=== PATIENT | male | born 1935 | race Caucasian/White ===

== ENCOUNTER 2016-10-10 10:54 | Day surgery (SDC) | payer MEDICARE ==
[2016-10-10] MEDS ORDERED: ceFAZolin 1 GM VIAL ONE (11:39)
[2016-10-10] MEDS ORDERED: BUPIVACAINE 0.5% PF 10 ML VIAL IM ONE ×2 (12:12)
[2016-10-10] MEDS ORDERED: LACTATED RINGERS 1,000 ML IV ONE (12:15)
[2016-10-10] MEDS ORDERED: PROPOFOL 200 MG/20 ML VIAL IVP ONE (12:30)
[2016-10-10] MEDS ORDERED: MIDAZOLAM 2 MG/2 ML VIAL IVP ONE (12:30)
[2016-10-10] MEDS ORDERED: LIDOCAINE-MPF 2% 5 ML VIAL IM ONE (12:30)
[2016-10-10] MEDS ORDERED: fentaNYL 100 MCG/2 ML VIAL IVP ONE (12:30)
[2016-10-10] MEDS ORDERED: KETOROLAC 15 MG/ML VIAL ONE (12:47)
== END 2016-10-10 10:55 | disposition home or self-care (01) ==
PROC: 01N50ZZ Release Median Nerve, Open Approach (ICD-10-PCS; principal; 2016-10-10 12:15)
DX: G56.02 Carpal tunnel syndrome, left upper limb (principal); I10 Essential (primary) hypertension; I25.2 Old myocardial infarction; J43.9 Emphysema, unspecified; Z87.891 Personal history of nicotine dependence; Z88.1 Allergy status to other antibiotic agents; Z88.5 Allergy status to narcotic agent
CPT/HCPCS: 64721; J7120

== ENCOUNTER 2016-11-04 09:16 | Day surgery (SDC) | payer MEDICARE ==
[2016-11-04] MEDS ORDERED: ceFAZolin 1 GM VIAL ONE (09:19)
[2016-11-04] MEDS ORDERED: LACTATED RINGERS 1,000 ML IV ONE (09:50)
[2016-11-04] MEDS ORDERED: BUPIVACAINE 0.25% PF 30 ML VIAL SUBQ ONE (10:32)
[2016-11-04] MEDS ORDERED: MIDAZOLAM 2 MG/2 ML VIAL IVP ONE (10:40)
[2016-11-04] MEDS ORDERED: PROPOFOL 200 MG/20 ML VIAL IVP ONE (10:40)
[2016-11-04] MEDS ORDERED: fentaNYL 100 MCG/2 ML VIAL IVP ONE (10:40)
[2016-11-04] MEDS ORDERED: LIDOCAINE-MPF 2% 5 ML VIAL IM ONE (10:40)
== END 2016-11-04 09:17 | disposition home or self-care (01) ==
DX: M65.331 Trigger finger, right middle finger (principal); M65.341 Trigger finger, right ring finger; J44.9 Chronic obstructive pulmonary disease, unspecified; I10 Essential (primary) hypertension; I25.10 Atherosclerotic heart disease of native coronary artery without angina pectoris; I25.2 Old myocardial infarction; F41.8 Other specified anxiety disorders; Z87.891 Personal history of nicotine dependence
CPT/HCPCS: 26055; J7120

== ENCOUNTER 2016-11-12 17:37 | Emergency (ER) | payer MEDICARE ==
[2016-11-12] MEDS ORDERED: LORazepam 0.5 MG TABLET PO STA (19:12)
[2016-11-12] MEDS ORDERED: LORazepam 0.5 MG TABLET ONE (19:21)
== END 2016-11-12 20:06 | disposition home or self-care (01) ==
DX: R00.2 Palpitations (principal); F41.9 Anxiety disorder, unspecified; I10 Essential (primary) hypertension; E78.00 Pure hypercholesterolemia, unspecified; I25.10 Atherosclerotic heart disease of native coronary artery without angina pectoris; J44.9 Chronic obstructive pulmonary disease, unspecified
CPT/HCPCS: 36415; 71010; 80053; 81003; 83690; 84484; 85025; 93005; 93010; 99284; A9270

== ENCOUNTER 2016-11-14 07:53 | Outpatient (CLI) | payer MEDICARE ==
[2016-11-14] MEDS ORDERED: GADOBUTROL 7.5 MMOL/7.5 ML VIAL IVP ONE (08:52)
== END 2016-11-14 07:54 | disposition home or self-care (01) ==
DX: R22.1 Localized swelling, mass and lump, neck (principal); R13.10 Dysphagia, unspecified
CPT/HCPCS: 70543; A9585

== ENCOUNTER 2017-01-07 10:32 | Outpatient (CLI) | payer MEDICARE ==
[2017-01-07] MEDS ORDERED: BARIUM SULFATE 454 GM TUBE PO ONE (11:08)
== END 2017-01-07 10:33 | disposition home or self-care (01) ==
DX: R13.10 Dysphagia, unspecified (principal)
CPT/HCPCS: 74230; 92611; G8997; G8998

== ENCOUNTER 2017-07-02 16:51 | Outpatient (CLI) | payer MEDICARE ==
[2017-07-02 17:15] LABS: CALCIUM 9.5 mg/dL (8.5-10.3); POTASSIUM 4.3 mmol/L (3.5-5.0)
[2017-07-02] MEDS ORDERED: IOPAMIDOL-300 50 ML VIAL ONE (17:28)
[2017-07-02] MEDS ORDERED: IOPAMIDOL-300 100 ML VIAL ONE (17:28)
[2017-07-02] MEDS ORDERED: IOPAMIDOL-300 50 ML VIAL PO ONE (18:18)
[2017-07-02] MEDS ORDERED: IOPAMIDOL-300 100 ML VIAL IVP ONE (18:18)
--- NOTE | 2017-07-02 19:25 | CT Preliminary Report ---
Exam: CT ABDOMEN/PELVIS W/ IMPRESSION: 1. No bowel obstruction or inflammatory process associated with the bowel. 2. No free air or fluid in the abdomen or pelvis. 3. The appendix images normally. 4. There is a fat-containing umbilical hernia measuring 8 mm at the neck. 5. 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 [facility] The call report notification system was initiated by Dr. Inge Singer at 18:50 hrs on 07/02/17. The above findings were discussed with Dr. Clark by Dr. Inge Singer at 19:24 hrs on 07/02/17. SITE ID: [id number]
--- NOTE | 2017-07-02 19:28 | CT Report ---
EXAM: CT ABDOMEN AND PELVIS EXAM DATE: 07/02/2017 06:21 PM. CLINICAL HISTORY: COLOTIS,HERNIA. COMPARISONS: Abdominal CT dated 06/16/2008. TECHNIQUE: Routine helical CT imaging was performed through the abdomen and pelvis. IV contrast: 100 mL Isovue 300. Enteric contrast: No. Reconstructions: Coronal and sagittal. In accordance with CT protocol optimization, one or more of the following dose reduction techniques w ere utilized for this exam: automated exposure control, adjustment of mA and/or KV based on patient s ize, or use of iterative reconstructive technique. FINDINGS: Lung Bases: Unremarkable. Liver: Normal. No masses. Gallbladder/Bile Ducts: Unremarkable. Spleen: Normal. Pancreas: Normal. Adrenal Glands: There is a 3.0 x 2.0 cm, previously 2.9 x 2.1 cm on the abdominal CT dated 06/16/2008 , lesion in the right adrenal gland measuring up to 119 Hounsfield units. Left adrenal gland is unrem arkable. Kidneys: There is a nonobstructing 3 mm stone in the inferior pole of the left kidney. No hydronephro sis or ureter. Peritoneal Cavity/Bowel: There is a fat-containing umbilical hernia measuring 8 mm at the neck.. No f ree fluid, free air or adenopathy. No masses or acute inflammatory process. The appendix is well visu alized and normal. Pelvic Organs: The superior aspect of the prostate has a funneled shaped scan be seen in the setting of prior TURP procedures. Vasculature: No aneurysms or other significant abnormality. Bones: No significant abnormality. Other: None. IMPRESSION: 1. No bowel obstruction or inflammatory process associated with the bowel. 2. No free air or fluid in the abdomen or pelvis. 3. The appendix images normally. 4. There is a fat-containing umbilical hernia measuring 8 mm at the neck. 5. 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 [facility] The call report notification system was initiated by Dr. Ineg Singer at 18:50 hrs on 07/02/17. The above findings were discussed with Dr. Clark by Dr. Inge Singer at 19:24 hrs on 07/02/17. Referring Provider Line: [phone] SITE ID: [id number]
== END 2017-07-02 16:52 | disposition home or self-care (01) ==
LOC: LAB 16:51 → DI 16:52
PROVIDERS: ATTEND Specialist
DX: K42.9 Umbilical hernia without obstruction or gangrene (principal); E27.8 Other specified disorders of adrenal gland
CPT/HCPCS: 36415; 74177; 80048; Q9967

== ENCOUNTER 2017-08-12 21:17 | Outpatient (CLI) | payer MEDICARE | END 2017-08-12 21:18 | disposition critical access hospital (66) | LOC: EMS 21:17 | PROVIDERS: ATTEND Surgery | DX: K62.5 Hemorrhage of anus and rectum (principal) | CPT/HCPCS: A0425; A0429 ==

== ENCOUNTER 2017-08-12 21:34 | Emergency (ER) | payer MEDICARE ==
[2017-08-12 22:08] LABS: HCT - HEMATOCRIT 41.8 % (42.0-52.0); HGB - HEMOGLOBIN 14.4 g/dL (14.0-18.0); MEAN CORPUSCULAR HEMOGLOBIN 33.3 pg (27.0-31.0); MEAN CORPUSCULAR HGB CONC 34.3 g/dL (32.0-36.0); MEAN CORPUSCULAR VOLUME 97.1 fL (80.0-94.0); MEAN PLATELET VOLUME 8.5 fL (7.4-11.4); RED BLOOD COUNT 4.31 10^6/uL (4.70-6.10); RED CELL DISTRIBUTION WIDTH 12.7 % (12.0-15.0); WHITE BLOOD COUNT 5.3 x10^3/uL (4.8-10.8)
--- NOTE | 2017-08-12 22:16 | ED Physician Documentation ---
PD HPI GI BLEED - Stated complaint Stated Complaint: GI BLEED - Chief complaint Chief Complaint: Abd Pain - History obtained from History obtained from: Patient - History of Present Illness Timing - onset: How many hours ago (1-2), Today Timing - details: Abrupt onset Associated symptoms: BRBPR (he had had a normal BM this morning without pain nor problems. This evening he had onset of some lower abd/left sided cramping and then had urge for BM. He went to toilet and had "large amount" of bright red blood pass rectally without stool. He did not notice any clots nor black/ dark color. He did feel lightheaded with it. Abd pain improved after the output was done.), Dizzy (lightheaded briefly) Contributing factors: No: Sick contact, Bad food, Travel, Recent antibiotics, Anticoagulated Similar symptoms before: No diagnosis (had an episode of BRBPR about a year or so ago while on a vacation, and it did not repeat, so dd not see PMD about it.) Recently seen: Clinic (has appt with Music Video Director tomorrow for cardiac clearance prior to getting umbilical hernia repair by Dr. Hare. Also to get upper and lower endoscopies in near future as follow up for prior [place] for reflux and prior colonoscopy about 5 years ago.) Review of Systems Constitutional: denies: Fever, Chills Nose: denies: Rhinorrhea / runny nose, Congestion Throat: denies: Sore throat Cardiac: denies: Chest pain / pressure, Palpitations Respiratory: denies: Cough GI: reports: Bloody / black stool (as noted in HPI). denies: Nausea, Vomiting, Diarrhea : denies: Dysuria, Frequency Skin: denies: Rash, Lesions Musculoskeletal: denies: Neck pain, Back pain Neurologic: reports: Generalized weakness. denies: Focal weakness, Numbness, Near syncope Endocrine: denies: Easy bruising / bleeding Immunocompromised: denies: Immunocompromised PD PAST MEDICAL HISTORY - Past Medical History Past Medical History: Yes Cardiovascular: Hypertension, High cholesterol, Coronary artery disease, Murmur Respiratory: COPD, Emphysema, Pneumonia Neuro: None Endocrine/Autoimmune: None GI: GERD, Ulcers, Hemorrhoids, Other : Benign prostate hypertrophy, Kidney stones HEENT: Macular degeneration, Other Psych: Anxiety Musculoskeletal: Osteoarthritis Derm: Psoriasis - Past Surgical History Past Surgical History: Yes General: Bowel surgery, Colonoscopy, EGD Ortho: Carpal Tunnel surgery Cardiovascular: Cardiac catheterization HEENT: Cataracts, Tonsil/Adenoidectomy - Present Medications Home Medications: Ambulatory Orders Medication Instructions Recorded Confirmed Cholecalciferol (Vitamin D3) 1 each PO DAILY 10/10/16 08/12/17 [Vitamin D3] Vitamin B Complex 1 each PO DAILY 10/10/16 08/12/17 - Allergies Allergies/Adverse Reactions: Allergies Allergy/AdvReac Type Severity Reaction Status Date / Time ceftriaxone sodium * Allergy Dizziness Verified 08/12/17 21:37 [From Rocephin] morphine Allergy swelling Verified 08/12/17 21:37 - Social History Does the pt smoke?: No Smoking Status: Former smoker Does the pt drink ETOH?: No ETOH Use: Beer Does the pt have substance abuse?: No - Immunizations Immunizations are current?: Yes - POLST Patient has POLST: No PD ED PE NORMAL - Vitals Vital signs reviewed: Yes - General General: Alert and oriented X 3, No acute distress, Well developed/nourished - HEENT HEENT: Moist mucous membranes, Pharynx benign - Neck Neck: Supple, no meningeal sign, No adenopathy - Cardiac Cardiac: RRR, No murmur - Respiratory Respiratory: Clear bilaterally - Abdomen Abdomen: Normal bowel sounds, Soft, Non tender, Non distended, No organomegaly, Other (umbilical hernia noted which is soft and easily reducible. ) - Male Male : Deferred - Rectal Rectal: Other (external normal. Digital exam without obvious hemorrhoid nor fissure. There is no stool in vault, but trace of red blood with some mucous. No focal tenderness. ) - Back Back: No CVA TTP - Derm Derm: Normal color, Warm and dry - Extremities Extremities: No deformity, No tenderness to palpate, Normal ROM s pain, No edema , No calf tenderness / cord - Neuro Neuro: Alert and oriented X 3, No motor deficit, Normal speech Results - Vitals Vitals: Vital Signs - 24 hr 08/12/17 08/12/17 08/12/17 21:36 22:05 22:54 Temperature 36.6 C Heart Rate 85 80 80 Respiratory 20 20 17 Rate Blood Pressure 152/82 H 143/89 H 171/91 H O2 Saturation 94 95 95 08/12/17 08/12/17 23:38 23:57 Temperature Heart Rate 80 75 Respiratory 21 18 Rate Blood Pressure 156/78 H 160/84 H O2 Saturation 96 97 Oxygen O2 Source Room air - Labs Labs: Laboratory Tests 08/12/17 08/12/17 08/12/17 21:49 21:49 21:49 WBC 5.3 RBC 4.31 L Hgb 14.4 Hct 41.8 L MCV 97.1 H MCH 33.3 H MCHC 34.3 RDW 12.7 Plt Count 218 MPV 8.5 Whole Blood INR APTT 26.3 Sodium Potassium Chloride Carbon Dioxide Anion Gap BUN Creatinine Estimated GFR (MDRD) Glucose Calcium Total Bilirubin AST ALT Alkaline Phosphatase Total Protein Albumin Globulin Albumin/Globulin Ratio Lipase Ethyl Alcohol Blood Type O POSITIVE Antibody Screen NEGATIVE 08/12/17 08/12/17 08/12/17 21:49 21:49 21:56 WBC RBC Hgb Hct MCV MCH MCHC RDW Plt Count MPV Whole Blood INR 0.9 APTT Sodium 135 Potassium 3.8 Chloride 101 Carbon Dioxide 23 Anion Gap 11.0 BUN 18 Creatinine 1.1 Estimated GFR (MDRD) 64 L Glucose 110 H Calcium 9.1 Total Bilirubin 0.2 AST 24 ALT 17 Alkaline Phosphatase 49 Total Protein 6.7 Albumin 3.7 Globulin 3.0 Albumin/Globulin Ratio 1.2 Lipase 41 Ethyl Alcohol < 5.0 Blood Type Antibody Screen PD MEDICAL DECISION MAKING - ED course Complexity details: reviewed results, re-evaluated patient (feeling okay here. No abd pain. He says he had small BM with some formed stool and no significant blood. ), considered differential (seems likely a lower colon process, but does not seem to be hemorrhoidal nor fissure on exam. Could be diverticular bleed. He seems stable. However, consider watching as he did have lightheadedness and description of large amount of blood. Repeat blood count and fluids and time to monitor for ongoing bleeding. Will discuss with Hospitalist. ), d/w patient, d/ w home energy consultant supervisor (Dr. Pickard, hospitalist, who came and talked with patient and . They agreed in shared decision for the patient to go home, given how stable he seems. He is to return if bleeding again, otherwise to f/u PMD (and his Music Video Director with whom he has appt tomorrow). Dispo changed to discharged. ) Departure - Departure Disposition: Home, Self Care Clinical Impression: Lower GI bleeding Condition: Stable Record reviewed to determine appropriate education?: Yes Instructions: ED Hematochezia Stable Follow-Up: Naya Coy PA-C [Primary Care Provider] - Comments: Drink lots of fluids. Usual medications. Return if intestinal bleeding again occurs. See the vamp strap ironer tomorrow as planned. Have a repeat blood count done in the next 1-2 days. Discharge Date/Time: 08/13/17 00:05
[2017-08-12 22:18] LABS: ALBUMIN/GLOBULIN RATIO 1.2 (1.0-2.2); BILIRUBIN,TOTAL 0.2 mg/dL (0.2-1.0); CALCIUM 9.1 mg/dL (8.5-10.3); CREATININE 1.1 mg/dL (0.6-1.2); POTASSIUM 3.8 mmol/L (3.5-5.0); TOTAL PROTEIN 6.7 g/dL (6.7-8.2)
[2017-08-12] MEDS ORDERED: SODIUM CHLORIDE 0.9% 250 ML IV ONE (22:36)
[2017-08-12] MEDS ORDERED: SODIUM CHLORIDE 0.9% 500 ML IV ONE (22:36)
[2017-08-12] MEDS ORDERED: oxyCODONE 5 MG TABLET PO PRN (23:24)
[2017-08-12] MEDS ORDERED: ACETAMINOPHEN 325 MG TABLET PO PRN (23:24)
[2017-08-12] MEDS ORDERED: ONDANSETRON 4 MG/2 ML VIAL IVP PRN (23:24)
[2017-08-12] MEDS ORDERED: ZOLPIDEM 5 MG TABLET PO PRN (23:24)
[2017-08-12] MEDS ORDERED: PROCHLORPERAZINE 10 MG/2 ML VIAL IVP PRN (23:24)
[2017-08-12] MEDS ORDERED: SODIUM CHLORIDE FLUSH 0.9% 10 ML SYRINGE IVP PRN (23:24)
[2017-08-12] MEDS ORDERED: PANTOPRAZOLE 40 MG VIAL IVP SCH (23:45)
[2017-08-12] MEDS ORDERED: SODIUM CHLORIDE 0.9% 1,000 ML IV SCH (23:45)
[2017-08-12 23:58] VITALS: BP 160/84
[2017-08-13] MEDS ORDERED: SODIUM CHLORIDE FLUSH 0.9% 10 ML SYRINGE IVP SCH (06:00)
[2017-08-13] MEDS ORDERED: POLYETHYLENE GLYCOL 3350 17 GM PACKET PO SCH (09:00)
== END 2017-08-13 00:05 | disposition home or self-care (01) ==
LOC: ED 21:34
DX: K92.2 Gastrointestinal hemorrhage, unspecified (principal); I10 Essential (primary) hypertension; E78.00 Pure hypercholesterolemia, unspecified; I25.10 Atherosclerotic heart disease of native coronary artery without angina pectoris; Z87.891 Personal history of nicotine dependence; H35.30 Unspecified macular degeneration
CPT/HCPCS: 36415; 80053; 83690; 85027; 85610; 85730; 86850; 86900; 86901; 96360; 99284; G0480; 80320; 85025

== ENCOUNTER 2017-09-19 06:58 | Day surgery (SDC) | payer MEDICARE ==
[~2017-09-19 06:58] MED LIST: ceFAZolin 2 GM/50 ML 2 GM/50 ML BAG IV ONE
[2017-09-19] MEDS ORDERED: BUPIVACAINE 0.5%-EPI 1:200000 PF 30 ML VIAL SUBQ ONE ×2 (07:22→09:13)
[2017-09-19] MEDS ORDERED: LACTATED RINGERS 1,000 ML IV ONE ×2 (07:34→09:14)
[2017-09-19] MEDS ORDERED: fentaNYL 100 MCG/2 ML VIAL IVP ONE (08:49)
[2017-09-19] MEDS ORDERED: ONDANSETRON 4 MG/2 ML VIAL IVP ONE (08:49)
[2017-09-19] MEDS ORDERED: KETOROLAC 30 MG/ML VIAL IVP ONE (08:49)
[2017-09-19] MEDS ORDERED: DEXAMETHASONE 4 MG/ML VIAL IVP ONE (08:49)
[2017-09-19] MEDS ORDERED: LIDOCAINE-MPF 2% 5 ML VIAL IM ONE (08:49)
[2017-09-19] MEDS ORDERED: PROPOFOL 200 MG/20 ML VIAL IVP ONE (08:49)
[2017-09-19] MEDS ORDERED: ePHEDrine 50 MG/ML VIAL IVP ONE (08:49)
[2017-09-19] MEDS ORDERED: MIDAZOLAM 2 MG/2 ML VIAL IVP ONE (08:49)
[2017-09-19] MEDS: fentaNYL 100 MCG/2 ML VIAL ONE ×2 (09:50→09:56)
[2017-09-19] MEDS ORDERED: HYDROcod/ACETAM 5/325 MG TABLET ONE (10:28)
[2017-09-19 10:44] VITALS: BP 140/78
--- NOTE | 2017-09-25 11:03 | OPERATIVE REPORT ---
DATE OF SERVICE: 09/19/2017 Physician: Teja Hare MD PREOPERATIVE DIAGNOSIS: Incarcerated ventral incisional hernia. POSTOPERATIVE DIAGNOSIS: Incarcerated ventral incisional hernia. PROCEDURE: Repair of incarcerated ventral incisional hernia. OPERATING SURGEON: Teja Hare MD ANESTHESIA: General. INDICATIONS FOR PROCEDURE: The patient is an 81-year-old male who has had multiple previous abdomina l surgeries. His last surgery was a gastric surgery that was done laparoscopically. He now presents w ith pain and swelling in the supraumbilical area overlying one of the previous incisions. On physical exam, tony taveras has incarcerated ventral incisional hernia. FINDINGS AT SURGERY: The patient had incarcerated ventral incisional hernia containing a small amoun t of omentum. The hole was small, measuring approximately 1.5 cm; therefore, it was closed primarily. PROCEDURE: After informed consent was obtained, the patient was taken to the operating room, placed in supine position. General anesthesia was administered. The patient's abdomen was then prepped and draped in the usual sterile fashion. Prior to making abdominal incision, the skin was injected with local anesthes ia. A vertical incision was then made over the hernia sac. Incision was then deepened down to the hernia s ac, which was dissected free from the surrounding structures. Hernia sac was entered with a containing incarce rated omentum. The omentum that was outside of the abdominal cavity was then clamped, divided, and tied us ing 3-0 Vicryl suture. Hernia sac was then removed from the fascia. The surrounding subcutaneous tissue was then dissected off the fascia surrounding the defect. The fascial defect was then closed using interrupte d number 0 Ethibond sutures closing it transversely. Wound was irrigated and hemostasis was obtained using electrocautery. Subcutaneous tissue was closed using 3-0 Vicryl suture. The skin was closed using 4 -0 Monocryl subcuticular stitch. Dermabond was then applied. The patient was then awakened, extubated, and taken from the operating room in stable condition. ESTIMATED BLOOD LOSS: Less than 5 mL. COMPLICATIONS: None. CONDITION OF THE PATIENT AFTER PROCEDURE: Stable. SPECIMENS: None. TD: 09/24/2017 11:52
== END 2017-09-19 06:59 | disposition home or self-care (01) ==
LOC: SDS 06:58
PROVIDERS: ATTEND Surgery
PROC: 0WQF0ZZ Repair Abdominal Wall, Open Approach (ICD-10-PCS; principal; 2017-09-19 08:15)
DX: K43.0 Incisional hernia with obstruction, without gangrene (principal); K21.9 Gastro-esophageal reflux disease without esophagitis; J44.9 Chronic obstructive pulmonary disease, unspecified; Z87.891 Personal history of nicotine dependence
CPT/HCPCS: 49561; A9270; J0690; J7120

== ENCOUNTER 2017-10-28 08:57 | Day surgery (SDC) | payer MEDICARE ==
[2017-10-28] MEDS ORDERED: LACTATED RINGERS 1,000 ML IV ONE ×3 (09:37→10:30)
[2017-10-28] MEDS ORDERED: fentaNYL 100 MCG/2 ML VIAL IVP ONE (10:26)
[2017-10-28] MEDS ORDERED: MIDAZOLAM 2 MG/2 ML VIAL IVP ONE (10:26)
[2017-10-28 12:28] VITALS: BP 112/68
== END 2017-10-28 08:58 | disposition home or self-care (01) ==
LOC: SDS 08:57
PROVIDERS: ATTEND Surgery
PROC: 0DB98ZX Excision of Duodenum, Via Natural or Artificial Opening Endoscopic, Diagnostic (ICD-10-PCS; 2017-10-28)
PROC: 0DB48ZX Excision of Esophagogastric Junction, Via Natural or Artificial Opening Endoscopic, Diagnostic (ICD-10-PCS; 2017-10-28)
PROC: 0DBK8ZX Excision of Ascending Colon, Via Natural or Artificial Opening Endoscopic, Diagnostic (ICD-10-PCS; principal; 2017-10-28 10:15)
PROC: 0DBP8ZX Excision of Rectum, Via Natural or Artificial Opening Endoscopic, Diagnostic (ICD-10-PCS; 2017-10-28 10:15)
DX: K62.5 Hemorrhage of anus and rectum (principal); K22.70 Barrett's esophagus without dysplasia; K44.9 Diaphragmatic hernia without obstruction or gangrene; D13.2 Benign neoplasm of duodenum; K29.70 Gastritis, unspecified, without bleeding; K92.1 Melena; K57.30 Diverticulosis of large intestine without perforation or abscess without bleeding; D12.2 Benign neoplasm of ascending colon; K62.1 Rectal polyp; K64.8 Other hemorrhoids; Z87.891 Personal history of nicotine dependence
CPT/HCPCS: 43239; 45384; J7120

== ENCOUNTER 2017-11-22 15:49 | Observation (INO) | payer MEDICARE ==
[2017-11-22 16:20] LABS: BASOPHILS % (AUTO) 0.7 %; EOSINOPHILS # (AUTO) 0.2 10^3/uL (0.0-0.7); EOSINOPHILS % (AUTO) 3.1 %; HGB - HEMOGLOBIN 14.5 g/dL (14.0-18.0); LYMPHOCYTES # (AUTO) 1.5 10^3/uL (1.5-3.5); LYMPHOCYTES % (AUTO) 27.7 %; MEAN CORPUSCULAR HEMOGLOBIN 32.4 pg (27.0-31.0); MEAN CORPUSCULAR HGB CONC 33.9 g/dL (32.0-36.0); MEAN CORPUSCULAR VOLUME 95.5 fL (80.0-94.0); MEAN PLATELET VOLUME 8.1 fL (7.4-11.4); MONOCYTES # (AUTO) 0.8 10^3/uL (0.0-1.0); MONOCYTES % (AUTO) 14.4 %; NEUTROPHILS # (AUTO) 2.9 10^3/uL (1.5-6.6); NEUTROPHILS % (AUTO) 54.1 %; PLT - PLATELET COUNT 246 10^3/uL (130-450); RED BLOOD COUNT 4.48 10^6/uL (4.70-6.10); WHITE BLOOD COUNT 5.3 x10^3/uL (4.8-10.8)
[2017-11-22 16:26] LABS: PT - PROTHROMBIN TIME 10.9 secs (9.9-12.6)
--- NOTE | 2017-11-22 16:27 | ED Physician Documentation ---
PD HPI ABD PAIN - Stated complaint Stated Complaint: ABD PX/RECTAL BLEEDING - Chief complaint Chief Complaint: Abd Pain - History obtained from History obtained from: Patient, Family - History of Present Illness Timing - onset: Today Timing - duration: Days (1) Timing - details: Abrupt onset Pain level max: 10 Pain level now: 10 Quality: Aching, Pain Location: All over / everywhere Radiation: Other (non-radiating) Improved by: Other (nothing) Worsened by: Moving, Palpation Associated symptoms: Nausea, Other (BRBPR x 1 today after pain started. Has severe internal hemorrhoids.). No: Fever, Vomiting, Hematemesis, Diarrhea, Constipation Similar symptoms before: Diagnosis (incarcerated ventral hernia repair approx 6 weeks ago. severe internal hemorrhoids on colonoscopy 1 month ago.) Review of Systems Ten Systems: 10 systems reviewed and negative Constitutional: denies: Fever, Chills Ears: denies: Ear pain Nose: denies: Rhinorrhea / runny nose, Congestion Throat: denies: Sore throat Cardiac: denies: Chest pain / pressure GI: denies: Diarrhea, Hematemesis Skin: denies: Rash Musculoskeletal: denies: Neck pain, Back pain Neurologic: denies: Headache PD PAST MEDICAL HISTORY - Past Medical History Cardiovascular: Hypertension, High cholesterol, Coronary artery disease, MA, Murmur, Arrhythmia Respiratory: COPD, Emphysema, Pneumonia Neuro: None Endocrine/Autoimmune: None GI: GERD, GI bleed, Ulcers, Hemorrhoids, Other : Benign prostate hypertrophy, Kidney stones HEENT: Macular degeneration, Chronic hearing loss, Other Psych: Depression, Anxiety, Panic attacks Musculoskeletal: Osteoarthritis, Chronic back pain Derm: Psoriasis - Past Surgical History Past Surgical History: Yes General: Bowel surgery, Colonoscopy, EGD Ortho: Carpal Tunnel surgery Cardiovascular: Cardiac catheterization HEENT: Cataracts, Tonsil/Adenoidectomy - Allergies Allergies/Adverse Reactions: Allergies Allergy/AdvReac Type Severity Reaction Status Date / Time ceftriaxone sodium * Allergy Dizziness Verified 11/22/17 16:12 [From Rocephin] morphine Allergy swelling Verified 11/22/17 16:12 - Social History Does the pt smoke?: No Smoking Status: Never smoker Does the pt drink ETOH?: No Does the pt have substance abuse?: No - Immunizations Immunizations are current?: Yes - POLST Patient has POLST: No PD ED PE NORMAL - Vitals Vital signs reviewed: Yes - General General: Alert and oriented X 3, No acute distress, Well developed/nourished - HEENT HEENT: PERRL, Moist mucous membranes - Neck Neck: Supple, no meningeal sign - Cardiac Cardiac: RRR, Strong equal pulses - Respiratory Respiratory: No respiratory distress, Clear bilaterally - Abdomen Abdomen: Other (Mildly distended with diffuse tenderness to palpation. Positive rebound and guarding) - Male Male : Pt declined - Derm Derm: Warm and dry, No rash - Extremities Extremities: No calf tenderness / cord - Neuro Neuro: Alert and oriented X 3 - Psych Psych: Normal mood, Normal affect Results - Vitals Vitals: Vital Signs - 24 hr 11/22/17 11/22/17 11/22/17 15:57 18:24 18:25 Temperature 36.9 C Heart Rate 86 76 81 Respiratory 20 16 16 Rate Blood Pressure 191/86 H 142/73 H 146/76 H O2 Saturation 100 94 11/22/17 19:52 Temperature Heart Rate 78 Respiratory 16 Rate Blood Pressure 149/83 H O2 Saturation 94 Oxygen O2 Source Nasal cannula - Labs Labs: Laboratory Tests 11/22/17 11/22/17 11/22/17 16:10 16:10 16:10 WBC 5.3 RBC 4.48 L Hgb 14.5 Hct 42.7 MCV 95.5 H MCH 32.4 H MCHC 33.9 RDW 13.0 Plt Count 246 MPV 8.1 Neut # 2.9 Lymph # 1.5 Mitchell # 0.8 Eos # 0.2 Baso # 0.0 Absolute Nucleated RBC 0.00 Nucleated RBC % 0.1 PT INR APTT Sodium 137 Potassium 3.7 Chloride 104 Carbon Dioxide 23 Anion Gap 10.0 BUN 13 Creatinine 0.9 Estimated GFR (MDRD) 81 L Glucose 105 H Calcium 9.3 Total Bilirubin 0.6 AST 21 ALT 17 Alkaline Phosphatase 66 Total Protein 7.5 Albumin 4.2 Globulin 3.3 Albumin/Globulin Ratio 1.3 Lipase 36 Urine Color Urine Clarity Urine pH Ur Specific [place] Urine Protein Urine Glucose (UA) Urine Ketones Urine Occult Blood Urine Nitrite Urine Bilirubin Urine Urobilinogen Ur Leukocyte Esterase Ur Microscopic Review Urine Culture Comments Blood Type O POSITIVE Antibody Screen NEGATIVE 11/22/17 11/22/17 16:10 17:40 WBC RBC Hgb Hct MCV MCH MCHC RDW Plt Count MPV Neut # Lymph # Mitchell # Eos # Baso # Absolute Nucleated RBC Nucleated RBC % PT 10.9 INR 1.0 APTT 26.3 Sodium Potassium Chloride Carbon Dioxide Anion Gap BUN Creatinine Estimated GFR (MDRD) Glucose Calcium Total Bilirubin AST ALT Alkaline Phosphatase Total Protein Albumin Globulin Albumin/Globulin Ratio Lipase Urine Color YELLOW Urine Clarity CLEAR Urine pH 6.5 Ur Specific [place] <=1.005 Urine Protein NEGATIVE Urine Glucose (UA) NEGATIVE Urine Ketones NEGATIVE Urine Occult Blood NEGATIVE Urine Nitrite NEGATIVE Urine Bilirubin NEGATIVE Urine Urobilinogen 0.2 (NORMAL) Ur Leukocyte Esterase NEGATIVE Ur Microscopic Review NOT INDICATED Urine Culture Comments NOT INDICATED Blood Type Antibody Screen - Rads (name of study) CT abd/pelvis Radiology: Prelim report reviewed, EMP read contemporaneously, See rad report ( Left upper quadrant dilated small bowel loops with multiple air-fluid levels and mesenteric architectural distortion. Differential diagnosis includes early partial mid small bowel obstruction versus localizing ileus or enteritis in the left upper quadrant. 2. No bowel perforation or abnormal fluid collection. 3. Nonobstructing 3 mm left kidney stone. No ureter stones. ) PD MEDICAL DECISION MAKING - ED course Complexity details: reviewed old records, reviewed results, re-evaluated patient , considered differential, d/w patient, d/w family, d/w health care consultant ED course: Patient is an 82-year-old gentleman who presents to the emergency department with sudden onset abdominal pain. Appears to have an early bowel obstruction on CT scan. Pain well controlled in the emergency department. No vomiting. He also has chronic severe internal hemorrhoids that likely caused the bright red blood per rectum 1 tonight. Hemoglobin is normal. Discussed the case with Dr. Leung, general surgery who recommends observation tonight. Also discussed the case with Dr. Valentin, hospitalist who accepts. This document was made in part using voice recognition software. While efforts are made to proofread this document, sound alike and grammatical errors may occur. Departure - Departure Disposition: ED Place in Observation Clinical Impression: Small bowel obstruction, Lower GI bleeding Condition: Stable Discharge Date/Time: 11/22/17 20:53
[2017-11-22] MEDS ORDERED: fentaNYL 100 MCG/2 ML VIAL IVP STA ×2 (16:28→17:04)
[2017-11-22] MEDS ORDERED: SODIUM CHLORIDE 0.9% 1,000 ML IV ONE (16:31)
[2017-11-22] MEDS ORDERED: ONDANSETRON 4 MG/2 ML VIAL IVP STA (16:31)
[2017-11-22 16:32] LABS: ALBUMIN 4.2 g/dL (3.2-5.5); ALBUMIN/GLOBULIN RATIO 1.3 (1.0-2.2); BILIRUBIN,TOTAL 0.6 mg/dL (0.2-1.0); CALCIUM 9.3 mg/dL (8.5-10.3); CREATININE 0.9 mg/dL (0.6-1.2); TOTAL PROTEIN 7.5 g/dL (6.7-8.2)
[2017-11-22] MEDS ORDERED: IOPAMIDOL-300 100 ML VIAL ONE (16:57)
[2017-11-22] MEDS ORDERED: IOPAMIDOL-300 100 ML VIAL IVP ONE (17:23)
--- NOTE | 2017-11-22 17:49 | CT Report ---
EXAM: CT ABDOMEN AND PELVIS EXAM DATE: 11/22/2017 05:09 PM. CLINICAL HISTORY: Sudden onset diffuse abd pain. COMPARISONS: 07/02/2017. TECHNIQUE: Routine helical CT imaging was performed through the abdomen and pelvis. IV contrast: ISOV UE 300 100mL. Enteric contrast: No. Reconstructions: Coronal and sagittal. In accordance with CT protocol optimization, one or more of the following dose reduction techniques w ere utilized for this exam: automated exposure control, adjustment of mA and/or KV based on patient s ize, or use of iterative reconstructive technique. FINDINGS: Lung Bases: There are dependent bibasilar densities most suggestive of atelectasis. Negative for pleu ral effusion. Liver: Normal. No masses. Gallbladder/Bile Ducts: Unremarkable. Spleen: Normal. Pancreas: Normal. Adrenal Glands: There is an enhancing solid right adrenal nodule which is of indeterminate density an d appears unchanged measuring 2.7 x 2 cm. The left adrenal gland appears normal. Kidneys: There is a 3 mm nonobstructing left kidney stone. There are cysts in the right kidney. There is no hydronephrosis. No ureter stones. Peritoneal Cavity/Bowel: There dilated small bowel loops in the anterior left upper quadrant of the a bdomen. There are multiple small bowel air-fluid levels. The large or small bowel loops measure up to 4.1 cm in diameter. There are findings of previous abdominal surgery with a surgical anastomosis in the left colon. There is architectural distortion of the mesentery in the left abdomen. No free air o r abscess. No free fluid. There nondilated small bowel loops in the right lower quadrant. Pelvic Organs: Normal. The bladder and visualized pelvic organs are within normal limits. Vasculature: There is moderate calcification of the abdominal aorta without aneurysm. Bones: No significant abnormality. Other: None. IMPRESSION: 1. Left upper quadrant dilated small bowel loops with multiple air-fluid levels and mesenteric jaimee ectural distortion. Differential diagnosis includes early partial mid small bowel obstruction versus localizing ileus or enteritis in the left upper quadrant. 2. No bowel perforation or abnormal fluid collection. 3. Nonobstructing 3 mm left kidney stone. No ureter stones. [facility] Referring Provider Line: [phone] SITE ID: [id number]
--- NOTE | 2017-11-22 17:49 | CT Preliminary Report ---
Exam: CT ABDOMEN/PELVIS W/ IMPRESSION: 1. Left upper quadrant dilated small bowel loops with multiple air-fluid levels and mesenteric jaimee ectural distortion. Differential diagnosis includes early partial mid small bowel obstruction versus localizing ileus or enteritis in the left upper quadrant. 2. No bowel perforation or abnormal fluid collection. 3. Nonobstructing 3 mm left kidney stone. No ureter stones. [facility] SITE ID: [id number]
[2017-11-22 17:51] LABS: BILIRUBIN,URINE NEGATIVE (NEGATIVE); GLUCOSE, URINE (UA) NEGATIVE (NEGATIVE); KETONES,URINE (UA) NEGATIVE (NEGATIVE); LEUKOCYTE ESTERASE, URINE NEGATIVE (NEGATIVE); NITRITE,URINE NEGATIVE (NEGATIVE); OCCULT BLOOD,URINE NEGATIVE (NEGATIVE); PH,URINE 6.5 PH (5.0-7.5); PROTEIN,URINE NEGATIVE (NEGATIVE); UROBILINOGEN,URINE 0.2 (NORMAL) E.U./dL (NORMAL)
[2017-11-22 17:53] LABS: CLARITY,URINE CLEAR (CLEAR)
[2017-11-22] MEDS ORDERED: PROCHLORPERAZINE 10 MG/2 ML VIAL IVP PRN (19:56)
[2017-11-22] MEDS ORDERED: SODIUM CHLORIDE FLUSH 0.9% 10 ML SYRINGE IVP PRN (19:56)
[2017-11-22] MEDS ORDERED: HYDROmorphone 1 MG/ML SYRINGE IVP PRN (19:56)
--- NOTE | 2017-11-22 22:19 | HISTORY & PHYSICAL EXAMINATION ---
Chief Complaint - Chief Complaint Chief Complaint: abdominal pain History of Present Illness - Admitted From Admitted From:: home - History Obtained From Records Reviewed: yes History obtained from: patient, , and friend Exam Limitations: pt's hearing is impaired - History of Present Illness HPI Comment/Other: Mr. Joe Flores is a very pleasant 82-year-old male who has a history of sudden abdominal pain earlier today. He had a ventral hernia repair [address] Neil Hare and has had some rectal bleeding for which she is scheduled to see Dr. Oniel raza saphenous. He says the pain began around 1 PM and was very severe. It was so severe the patient decided to come to the emergency department.Subsequent workup found the patient have a partial small bowel obstruction. He will be admitted to the hospital for observation. History - Past Medical History Cardiovascular: reports: Hypertension, High cholesterol, Coronary artery disease , SC, Murmur, Arrhythmia Respiratory: reports: COPD, Emphysema, Pneumonia Neuro: reports: Other Endocrine/Autoimmune: reports: None GI: reports: GERD, GI bleed, Ulcers, Hemorrhoids, Other : reports: Benign prostate hypertrophy, Kidney stones HEENT: reports: Macular degeneration, Chronic hearing loss, Other Psych: reports: Depression, Anxiety, Panic attacks Musculoskeletal: reports: Osteoarthritis, Chronic back pain Derm: reports: Psoriasis MRSA Hx?: No Other Past Medical History: Forgetful-short term memory. Plan to see a Neurologist in the future. - Past Surgical History General: reports: Bowel surgery, Colonoscopy, EGD, Other Ortho: reports: Carpal Tunnel surgery Cardiovascular: reports: Cardiac catheterization HEENT: reports: Cataracts, Tonsil/Adenoidectomy - Family & Social History Family History: Mother: , Cancer, Father: , Other family: Cancer Living arrangement: At home Living Situation: With spouse/s.o. - Substance History Use: Uses substance without health or social issues: Alcohol Abuse: Recurrent use of substance despite neg consequences: NONE Dependence: Experiences withdrawal or developed tolerances: NONE - POLST Patient has POLST: Yes POLST Status: Full Code Meds/Allgy - Allergies Allergies/Adverse Reactions: Allergies Allergy/AdvReac Type Severity Reaction Status Date / Time ceftriaxone sodium * Allergy Dizziness Verified 11/22/17 16:12 [From Rocephin] morphine Allergy swelling Verified 11/22/17 16:12 Review of Systems - Constitutional Constitutional: denies: Fatigue, Fever, Chills - Eyes Eyes: denies: Pain, Irritation, Blurred vision - Ears, Nose & Throat Ears, Nose & Throat: denies: Ear pain, Hearing loss, Hearing aids, Tinnitus, Vertigo, Nasal pain, Nasal discharge - Cardiovascular Cariovascular: denies: Irregular heart rate, Palpitations, Chest pain, Edema - Respiratory Respiratory: denies: Cough, Sputum production, Wheezing, Hemoptysis, Orthopnea, SOB at rest - Gastrointestinal Gastrointestinal: reports: Abdominal pain, Constipation, Nausea. denies: Diarrhea, Rectal bleeding, Bloody stools, Vomiting - Genitourinary Genitourinary: denies: Dysuria, Frequency, Urgency, Hematuria - Musculoskeletal Musculoskeletal: denies: Muscle pain, Back pain, Muscle aches, Stiffness - Integumentary Integumentary: denies: Rash, Pruritis, Lesions, Dryness - Neurological Neurological: denies: General weakness, Focal weakness, Headache, Dizziness - Psychiatric Psychiatric: denies: Depression, Anxiety, Suicidal, Hallucinations - Endocrine Endocrine: denies: Polyuria, Polydypsia, Polyphagia - Hematologic/Lymphatic Hematologic/Lymphatic: denies: Anemia, Bruising, Lymphadenopathy - All Other Systems All Other Systems: reports: Reviewed and negative Exam - Vital Signs Reviewed Vital Signs: Yes Vital Signs: Vital Signs x48h Temp Pulse Resp BP Pulse Ox 11/22/17 21:50 36.4 C L 78 18 133/58 H 95 - Physical Exam General Appearance: positive: No acute distress, Alert Eyes Bilateral: positive: Normal inspection, PERRL, EOMI, No lid inflammation, Conjunctivae nml, No scleral icterus ENT: positive: ENT inspection nml, Pharynx nml, No signs of dehydration Neck: positive: Nml inspection, Thyroid nml, No JVD, Trachea midline. negative : Thyromegaly Respiratory: positive: Chest non-tender, No respiratory distress, Breath sounds nml. negative: Wheezes, Rales, Rhonchi Cardiovascular: positive: Regular rate & rhythm, No murmur, No gallop Peripheral Pulses: positive: 1+ Abdomen: positive: Non-tender, No organomegaly, Nml bowel sounds, No distention. negative: Guarding, Rebound Back: positive: Nml inspection. negative: CVA tenderness (R), CVA tenderness (L ) Skin: positive: Color nml, No rash, Warm, Dry. negative: Cyanosis Extremities: positive: Non-tender, Full ROM, Nml appearance, No pedal edema Neurologic/Psychiatric: positive: Oriented x3, CN's nml (2-12), Motor nml, Sensation nml, Mood/affect nml Conclusion/Plan - Problem List (1) Small bowel obstruction Conclusion/Plan: We will admit the patient to an observation bed, continue with regular feedings , and address any other issues as they arise. If the patient is able to eat and move his bowels tomorrow he will be discharged.Dr. Leung has been consulted - Lab Results Lab results reviewed: Yes Fish Bones: 11/22/17 16:10 11/22/17 16:10 - Diagnostic Imaging Results Diagnostic Imaging Results: positive: Final report reviewed Diagnostic Imaging Results Comments: EXAM: CT ABDOMEN AND PELVIS EXAM DATE: 11/22/2017 05:09 PM. CLINICAL HISTORY: Sudden onset diffuse abd pain. COMPARISONS: 07/02/2017. TECHNIQUE: Routine helical CT imaging was performed through the abdomen and pelvis. IV contrast: ISOVUE 300 100mL. Enteric contrast: No. Reconstructions: Coronal and sagittal. In accordance with CT protocol optimization, one or more of the following dose reduction techniques were utilized for this exam: automated exposure control, adjustment of mA and/or KV based on patient size, or use of iterative reconstructive technique. FINDINGS: Lung Bases: There are dependent bibasilar densities most suggestive of atelectasis. Negative for pleural effusion. Liver: Normal. No masses. Gallbladder/Bile Ducts: Unremarkable. Spleen: Normal. Pancreas: Normal. Adrenal Glands: There is an enhancing solid right adrenal nodule which is of indeterminate density and appears unchanged measuring 2.7 x 2 cm. The left adrenal gland appears normal. Kidneys: There is a 3 mm nonobstructing left kidney stone. There are cysts in the right kidney. There is no hydronephrosis. No ureter stones. Peritoneal Cavity/Bowel: There dilated small bowel loops in the anterior left upper quadrant of the abdomen. There are multiple small bowel air-fluid levels. The large or small bowel loops measure up to 4.1 cm in diameter. There are findings of previous abdominal surgery with a surgical anastomosis in the left colon. There is architectural distortion of the mesentery in the left abdomen. No free air or abscess. No free fluid. There nondilated small bowel loops in the right lower quadrant. Pelvic Organs: Normal. The bladder and visualized pelvic organs are within normal limits. Vasculature: There is moderate calcification of the abdominal aorta without aneurysm. Bones: No significant abnormality. Other: None. IMPRESSION: 1. Left upper quadrant dilated small bowel loops with multiple air-fluid levels and mesenteric architectural distortion. Differential diagnosis includes early partial mid small bowel obstruction versus localizing ileus or enteritis in the left upper quadrant. 2. No bowel perforation or abnormal fluid collection. 3. Nonobstructing 3 mm left kidney stone. No ureter stones. Core Measures - Anticipated LOS I expect patient to be DC'd or transferred within 96 hours.: Yes - DVT/VTE - Prophylaxis VTE/DVT Device ordered at admit?: Yes
[2017-11-23] MEDS: SODIUM CHLORIDE FLUSH 0.9% 10 ML SYRINGE IVP SCH ×2 (00:04→09:00)
[2017-11-23] MEDS ORDERED: PANTOPRAZOLE 40 MG TABLET PO SCH (07:00)
[2017-11-23] MEDS ORDERED: POLYETHYLENE GLYCOL 3350 17 GM PACKET PO SCH (09:00)
[2017-11-23] MEDS ORDERED: WITCH HAZEL/GLYCERIN 1 EACH MED..PAD TOP PRN (09:10)
--- NOTE | 2017-11-23 15:26 | Discharge Plan ---
Discharge Plan Disposition: 01 Home, Self Care Condition: Stable Prescriptions: Witch Kanika/Glycerin [Tucks] 1 each TOP BID #30 med..pad Diet: Regular Activity Restrictions: No Restrictions Weight Bearing: Full Weight Instruction Topics: Hemorrhoids Self Care, Bleeding Rectal Additional Instructions or Follow Up instructions: Follow-up with Elyssa Gonzalez for tubular adenoma removal Follow-up with Dr Xochitl thorne for hemmorhoid repair -- no suppositories , use gentle tucks pad externally if helpful No Smoking: If you smoke, Please STOP! Call for help. Follow-up with: ROBERT MADDEN [Primary Care Provider] - 1 Week
[2017-11-23 16:21] VITALS: BP 129/72
--- NOTE | 2017-11-23 16:35 | DISCHARGE SUMMARY ---
"Discharge Summary Admit Date: 11/22/17 Discharge Date: 11/23/17 Discharging Provider: Charlette GARNER Primary Care Provider: Julio Cesar June MD Code Status: Do Not Attempt Resuscitation Condition at Discharge: Stable Discharge Disposition: 01 Home, Self Care - DIAGNOSES Admission Diagnoses: 1. Early/partial small bowel obstruction 2. Internal hemorrhoids, bleeding Discharge Diagnoses with Status of Each Condition: 1. Early/partial small bowel obstruction - resolved 2. Internal hemorrhoids, bleeding - stable - HPI History of Present Illness: Presented with abdominal pain, nausea but no vomiting. He also has BRBPR x1. CT of abdomen with early vs partial SBO. Surgery saw patient and recommended medical management. - CONSULTS | PROCEDURES Consultations: General Surgery, Oniel Leung - HOSPITAL COURSE Hospital Course: Admitted, given clears and full liquids tolerated well, no nausea. Abdominal pain resolved, he walked the halls, passed flatus, then had small BM. Patient also had BRBP x1 from hemmorrhoid. 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 - ALLERGIES Allergies/Adverse Reactions: Allergies Allergy/AdvReac Type Severity Reaction Status Date / Time ceftriaxone sodium * Allergy Dizziness Verified 11/22/17 16:12 [From Rocephin] morphine Allergy swelling Verified 11/22/17 16:12 - MEDICATIONS Home Medications: Ambulatory Orders Medication Instructions Recorded Confirmed Multivitamin [Theragran] 1 tab PO DAILY 11/23/17 11/23/17 Witch Kanika/Glycerin [Tucks] 1 each TOP BID #30 med..pad 11/23/17 - PHYSICAL EXAM AT DISCHARGE General Appearance: positive: No acute distress, Alert Eyes Bilateral: positive: Normal inspection, PERRL ENT: positive: No signs of dehydration Neck: positive: No JVD Respiratory: positive: Chest non-tender, No respiratory distress, Breath sounds nml Cardiovascular: positive: Regular rate & rhythm Peripheral Pulses: positive: 2+ Abdomen: positive: Non-tender, Nml bowel sounds, No distention Back: positive: Nml inspection Skin: positive: No rash, Warm, Dry Extremities: positive: Non-tender, Full ROM, Nml appearance Neurologic/Psychiatric: positive: Oriented x3 - LABS Result Diagrams: 11/22/17 16:10 11/22/17 16:10 - FOLLOW UP Follow Up: Dr June in 5-10days Kalani Leung - TIME SPENT Time Spent in Discharge (Minutes): 20"
== END 2017-11-23 16:15 | disposition home or self-care (01) ==
LOC: ED 15:49 → OBS 19:56
PROVIDERS: ADMIT Hospitalist; ATTEND Nurse Practitioner Acute Care
DX: K56.609 Unspecified intestinal obstruction, unspecified as to partial versus complete obstruction (principal); K64.8 Other hemorrhoids; I10 Essential (primary) hypertension; J43.9 Emphysema, unspecified; E78.00 Pure hypercholesterolemia, unspecified; K21.9 Gastro-esophageal reflux disease without esophagitis; I25.10 Atherosclerotic heart disease of native coronary artery without angina pectoris; N40.0 Benign prostatic hyperplasia without lower urinary tract symptoms; H35.30 Unspecified macular degeneration; H91.90 Unspecified hearing loss, unspecified ear; R41.3 Other amnesia; M19.90 Unspecified osteoarthritis, unspecified site; Z98.890 Other specified postprocedural states; Z87.11 Personal history of peptic ulcer disease; Z87.442 Personal history of urinary calculi; Z87.01 Personal history of pneumonia (recurrent); I25.2 Old myocardial infarction
CPT/HCPCS: 36415; 74177; 80053; 81003; 83690; 85025; 85610; 85730; 86850; 86900; 86901; 96361; 96374; 96376; 99284; 99285; A9270; G0378; Q9967; 81001; 87086

== ENCOUNTER 2018-06-10 13:15 | Outpatient (CLI) | payer MEDICARE ==
[2018-06-10] MEDS ORDERED: ALBUTEROL NEB 2.5 MG/3 ML INH ONE (14:00)
== END 2018-06-10 13:16 | disposition home or self-care (01) ==
LOC: RT 13:15
PROVIDERS: ATTEND Family Medicine
DX: R05 Cough (principal)
CPT/HCPCS: 94010

== ENCOUNTER 2018-08-08 15:27 | Outpatient (CLI) | payer MEDICARE ==
[2018-08-08] MEDS ORDERED: GADOBUTROL 7.5 MMOL/7.5 ML VIAL ONE (16:03)
[2018-08-08] MEDS ORDERED: GADOBUTROL 7.5 MMOL/7.5 ML VIAL IVP ONE (17:49)
--- NOTE | 2018-08-10 09:56 | MRI Report ---
Reason: HIGHGRADE DYSPASTIC DUODENAL POLYP INCOMPLETELY RE Procedure Date: 08/08/2018 Accession Number: [id number] / [id number] Procedure: MRI - Abdomen W/WO CPT Code: FULL RESULT: EXAM: MR ABDOMEN WITH AND WITHOUT CONTRAST (MR ABDOMEN FOCUSED ON THE SMALL BOWEL AND MRCP) EXAM DATE: 08/08/2018 05:44 PM. CLINICAL HISTORY: High-grade dysplastic duodenal polyp. COMPARISON: 11/22/2017 CT. Endoscopy images dated 10/28/2017. TECHNIQUE: Multiplanar breath-hold T1, T2, and DWI sequences obtained through the pancreas and abdomen on an MR scanner. Dedicated 2D and 3D MRCP sequences obtained through the biliary and pancreatic ducts. Images obtained before and after administration of 5 mL Gadavist intravenous contrast. Multiphase postcontrast sequences obtained through the pancreas. FINDINGS: Lung Bases: The lung bases are clear. Liver: The liver has normal size, morphology and signal. No evidence of mass. The intrahepatic ducts appear normal. CBD: The CBD appears normal and measures 5 mm in diameter. Gallbladder: The gallbladder is partially distended and appears normal with no wall thickening or stone. Pancreas: The pancreas appears normal with no mass. The pancreatic duct measures 2.3 mm in diameter and appears normal with no stone or stricture. Spleen: The spleen appears normal. Kidneys and Adrenals: The kidneys appear normal with no mass or hydronephrosis. There are simple cysts in the kidneys. A 2.9 x 1.8 cm right adrenal nodule demonstrates dropout on opposed phase imaging consistent with adrenal adenoma, benign finding. Left adrenal is normal. Bowel: The small bowel and colon appear normal with no inflammation or obstruction. MR appearance is consistent with findings of partial colonic resection demonstrated on the previous CT. In the region of the second portion of the duodenum, the serosal surface and surrounding peritoneal/retroperitoneal fat demonstrate no abnormality and there is no suspicious nearby lymphadenopathy. The reportedly partially resected high-grade dysplastic duodenal polyp is otherwise not definitely identified. Retroperitoneum: The retroperitoneal structures appear normal with no mass or lymphadenopathy. IMPRESSION: No mass is seen in the region of the second duodenum, pancreaticoduodenal groove, head of the pancreas or leslie hepatis. No small bowel obstruction, exophytic local invasion beyond the serosa, local regional lymphadenopathy or evidence of hepatic metastasis are identified in the region of the second duodenum. RADIA
== END 2018-08-08 15:28 | disposition home or self-care (01) ==
LOC: DI 15:27
PROVIDERS: ATTEND Surgery
DX: D13.2 Benign neoplasm of duodenum (principal); D12.6 Benign neoplasm of colon, unspecified
CPT/HCPCS: 74183; A9585

== ENCOUNTER 2018-10-05 10:07 | Day surgery (SDC) | payer MEDICARE ==
[2018-10-05] MEDS ORDERED: LACTATED RINGERS 1,000 ML IV ONE (10:27)
[2018-10-05] MEDS ORDERED: LIDO GARGLE 30 ML BOTTLE ONE (10:59)
[2018-10-05] MEDS ORDERED: MIDAZOLAM 2 MG/2 ML VIAL IVP ONE (10:59)
[2018-10-05] MEDS ORDERED: fentaNYL 100 MCG/2 ML VIAL IVP ONE (10:59)
[2018-10-05] MEDS ORDERED: BENZOCAINE/TETRACAINE/BUTAMBEN 20 GM TOP ONE (11:05)
[2018-10-05] MEDS ORDERED: LIDO GARGLE 30 ML BOTTLE PO ONE (11:05)
[2018-10-05 11:44] VITALS: BP 121/71
== END 2018-10-05 10:08 | disposition home or self-care (01) ==
LOC: SDS 10:07
PROVIDERS: ATTEND Surgery
PROC: 0DB68ZX Excision of Stomach, Via Natural or Artificial Opening Endoscopic, Diagnostic (ICD-10-PCS; 2018-10-05)
PROC: 0DB58ZX Excision of Esophagus, Via Natural or Artificial Opening Endoscopic, Diagnostic (ICD-10-PCS; 2018-10-05)
PROC: 0DB78ZZ Excision of Stomach, Pylorus, Via Natural or Artificial Opening Endoscopic (ICD-10-PCS; 2018-10-05)
PROC: 0DB98ZX Excision of Duodenum, Via Natural or Artificial Opening Endoscopic, Diagnostic (ICD-10-PCS; principal; 2018-10-05 11:45)
DX: D13.2 Benign neoplasm of duodenum (principal); K44.9 Diaphragmatic hernia without obstruction or gangrene; K25.9 Gastric ulcer, unspecified as acute or chronic, without hemorrhage or perforation; K29.50 Unspecified chronic gastritis without bleeding; K31.7 Polyp of stomach and duodenum; K21.9 Gastro-esophageal reflux disease without esophagitis; Z87.891 Personal history of nicotine dependence
CPT/HCPCS: 43239; 87081; A9270; J7120

== ENCOUNTER 2018-11-17 11:32 | Outpatient (CLI) | payer MEDICARE ==
[2018-11-17] MEDS ORDERED: IOVERSOL 320 100 ML VIAL IVP ONE (11:44)
[2018-11-17] MEDS ORDERED: IOVERSOL 320 50 ML VIAL ONE (11:44)
[2018-11-17] MEDS: IOVERSOL 320 50 ML VIAL PO ONE (12:12)
[2018-11-17] MEDS: IOVERSOL 320 100 ML VIAL IVP ONE (13:11)
--- NOTE | 2018-11-17 13:58 | CT Report ---
Reason: ADEN0-DYSPLASTIC POLYP Procedure Date: 11/17/2018 Accession Number: [id number] / [id number] Procedure: CT - Abdomen/Pelvis W CPT Code: FULL RESULT: EXAM: CT CHEST, ABDOMEN AND PELVIS EXAM DATE: 11/17/2018 01:03 PM. CLINICAL HISTORY: Adeno-dysplastic polyp. COMPARISONS: Abdomen/pelvis with contrast 11/22/2017 5:09 PM Abdomen/pelvis with contrast 07/02/2017 6:20 PM Abdomen/pelvis 06/16/2008 10:51 AM Chest 06/08/2008 10:21 AM. TECHNIQUE: Routine helical CT imaging was performed through the chest, abdomen, and pelvis. IV contrast: OPTI 320 100mL. Enteric contrast: Yes. Reconstructions: Coronal and sagittal. In accordance with CT protocol optimization, one or more of the following dose reduction techniques were utilized for this exam: automated exposure control, adjustment of mA and/or KV based on patient size, or use of iterative reconstructive technique. FINDINGS: Lungs/Pleura: There are two 3 mm nodules in the left upper lobe on image 14 series 2. There are 3 perifissural nodules in the left lower lobe on image 24, 2 mm each. There is a 6 mm nodule in the right upper lobe on image 19 series 2. There is a 3 mm nodule in the right upper lobe on image 21 anteriorly. 3 mm right upper lobe nodule in image 33. Additional scattered pulmonary nodules measuring up to 3 mm are seen. No pleural effusion, pneumothorax or lung mass. Mediastinum: Moderate calcifications of the aortic arch and coronary arteries. No mediastinal lymphadenopathy. The right and left hilar lymph nodes measure up to 1 cm each on image 28. Liver: Normal. Gallbladder/Bile Ducts: Unremarkable. Spleen: Normal. Pancreas: Normal. Adrenal Glands: Right adrenal nodule measures 2.9 x 1.9 cm; while the nodule is uncharacterized, measurements are stable dating back to 2007. Left adrenal gland is atrophic. Kidneys: Nonobstructing 3 mm left renal calculus and right renal cysts as well as right renal hypodensity which is too small to characterize. Peritoneal Cavity/Bowel: Patient is status post fundoplication of the stomach. Patient is status post partial colectomy. There is distal diverticulosis. No free fluid, free air or adenopathy. No masses or acute inflammatory process. Pelvic Organs: Normal. The bladder and visualized pelvic organs are within normal limits with the exception of distention of the bladder. Vasculature: Atherosclerotic disease without aneurysm. Bones: No aggressive osseous lesion. Other: None. IMPRESSION: Stable right adrenal nodule. No evidence of hepatic metastases. Bilateral pulmonary nodules measuring up to 6 mm. Suggest short-term follow-up by chest CT in 6 months unless otherwise indicated by oncology protocol. RADIA
== END 2018-11-17 11:33 | disposition home or self-care (01) ==
LOC: LAB 11:32 → DI 11:33
PROVIDERS: ATTEND Specialist
DX: E27.9 Disorder of adrenal gland, unspecified (principal); R91.8 Other nonspecific abnormal finding of lung field
CPT/HCPCS: 36415; 71260; 74177; 82565; Q9967

== ENCOUNTER 2019-03-18 09:41 | Outpatient (CLI) | payer MEDICARE ==
[2019-03-18] MEDS ORDERED: IOVERSOL 320 100 ML VIAL IVP ONE ×2 (10:06→13:25)
[2019-03-18] MEDS ORDERED: IOVERSOL 320 50 ML VIAL ONE (10:09)
--- NOTE | 2019-03-18 11:41 | CT Report ---
Reason: POLYP OF STOMACH AND DUODENUM Procedure Date: 03/18/2019 Accession Number: [id number] / [id number] Procedure: CT - Abdomen/Pelvis W CPT Code: FULL RESULT: EXAM: CT ABDOMEN AND PELVIS EXAM DATE: 03/18/2019 11:00 AM. CLINICAL HISTORY: Polyp of stomach and duodenum. COMPARISONS: ABDOMEN/PELVIS W/ 11/17/2018 12:59 PM. TECHNIQUE: Routine helical CT imaging was performed through the abdomen and pelvis. IV contrast: 100 mL Optiray 320. Enteric contrast: Yes. Reconstructions: Coronal and sagittal. In accordance with CT protocol optimization, one or more of the following dose reduction techniques were utilized for this exam: automated exposure control, adjustment of mA and/or KV based on patient size, or use of iterative reconstructive technique. FINDINGS: Lung Bases: Dependent changes and scant linear consolidation in both lung bases. Liver: Normal. No masses. Gallbladder/Bile Ducts: Unremarkable. Spleen: Normal. Pancreas: Normal. Adrenal Glands: 2.9 x 1.9 cm right adrenal nodule demonstrates long-term stability. Left adrenal gland appears atrophic. Kidneys: Redemonstration of a few mm nonobstructing left renal calculus and right renal cyst as well as renal hypodensity on the right which is too small to characterize. Peritoneal Cavity/Bowel: There is no bowel obstruction. There is no free fluid or free air. There are a few prominent mesenteric lymph nodes which measure less than 1 cm in short axis, for example image 51 series 3. There is no lymphadenopathy by size criteria. Pelvic Organs: The prostate appears heterogeneous and asymmetrically enlarged on the left and lifts the bladder base, best seen on image 30 series 5-4.9 x 4.5 cm. Bladder appears thickened. Vasculature: Moderate atherosclerosis without abdominal aortic aneurysm. Bones: No aggressive osseous lesions are seen. Other: None. IMPRESSION: No definite metastatic disease. Asymmetrically enlarged prostate. RADIA
[2019-03-18] MEDS ORDERED: IOVERSOL 320 50 ML VIAL PO ONE (13:25)
== END 2019-03-18 09:42 | disposition home or self-care (01) ==
LOC: DI 09:41
PROVIDERS: ATTEND Specialist
DX: K31.7 Polyp of stomach and duodenum (principal); N40.0 Benign prostatic hyperplasia without lower urinary tract symptoms; N20.0 Calculus of kidney; N28.1 Cyst of kidney, acquired
CPT/HCPCS: 36415; 74177; 82565; Q9967

== ENCOUNTER 2019-07-05 09:33 | Outpatient (CLI) | payer MEDICARE ==
--- NOTE | 2019-07-05 12:24 | XRAY Report ---
Reason: ASPIRATION Procedure Date: 07/05/2019 Accession Number: [id number] / [id number] Procedure: FL - Modified Barium Swallow W/SP CPT Code: FULL RESULT: EXAM: Modified Barium Swallow W/SP DATE: 07/05/2019 11:07 AM CLINICAL HISTORY: ASPIRATION COMPARISON: None. TECHNIQUE: Under the direction of speech pathology, patient swallowed various consistencies of barium under lateral fluoroscopic observation of the neck. Fluoroscopic exposure time: 37 seconds and 0 minutes. Number of fluoroscopic images: 7. Cine fluoroscopy recorded. FINDINGS: Airway Protection: Normal epiglottic motion. Minor penetration which spontaneously cleared. No episodes of tracheal aspiration with all consistencies of barium. Other: None. Please also refer to full report from Speech Pathology. IMPRESSION: No aspiration identified. RADIA
== END 2019-07-05 09:34 | disposition home or self-care (01) ==
LOC: DI 09:33
PROVIDERS: ATTEND Internal Medicine
DX: T65 Toxic effect of other and unspecified substances (principal)
CPT/HCPCS: 74230

== ENCOUNTER 2020-01-18 09:10 | Outpatient (CLI) | payer MEDICARE ==
[2020-01-18] MEDS ORDERED: IOVERSOL 320 50 ML VIAL ONE (09:17)
[2020-01-18] MEDS ORDERED: IOVERSOL 320 100 ML VIAL IVP ONE ×2 (09:18→15:24)
[2020-01-18] MEDS ORDERED: IOVERSOL 320 50 ML VIAL PO ONE (15:24)
--- NOTE | 2020-01-19 10:49 | CT Report ---
Reason: MALIGNANT NEOPLASM Procedure Date: 01/18/2020 Accession Number: [id number] / [id number] Procedure: CT - Abdomen/Pelvis W CPT Code: Final Report FULL RESULT: EXAM: CT ABDOMEN AND PELVIS EXAM DATE: 01/18/2020 10:50 AM. CLINICAL HISTORY: Malignant neoplasm. History of polyp in stomach and duodenum. COMPARISONS: ABDOMEN/PELVIS W/ 03/18/2019 11:00 AM. TECHNIQUE: Routine helical CT imaging was performed through the abdomen and pelvis. IV contrast: 100 mL Optiray 320. Enteric contrast: Yes. Reconstructions: Coronal and sagittal. In accordance with CT protocol optimization, one or more of the following dose reduction techniques were utilized for this exam: automated exposure control, adjustment of mA and/or KV based on patient size, or use of iterative reconstructive technique. FINDINGS: Lung Bases: See separate chest CT report. Liver: Normal. No masses. Gallbladder/Bile Ducts: Status post cholecystectomy. Spleen: Normal. Pancreas: Normal. Adrenal Glands: The solid right adrenal nodule measures 3.0 x 1.9 cm as seen on image 25 series 3, essentially unchanged. The left adrenal gland is unremarkable. Kidneys: The right kidney again demonstrates a cystic lesion which is not characterized now measuring up to 1.9 cm on image 43, previously up to 1.6 cm. Additionally there are right renal hypodensities which are too small to characterize. The left kidney contains a 3 mm nonobstructing calculus. Peritoneal Cavity/Bowel: There has been interval proximal small bowel resection. Surgical clips and soft tissue thickening in the region of the hiatus along the gastroesophageal junction are again seen, correlate to endoscopic findings and surgical history. There is no lymphadenopathy by size criteria. There is no free fluid or free air. Pelvic Organs: The prostate appears prominent indenting and lifting the bladder base. Vasculature: Atherosclerotic disease without abdominal aortic aneurysm. Bones: No significant abnormality. Other: None. IMPRESSION: Abnormal appearance of the gastroesophageal junction with suggestion of prior surgery, similar to 2019. Please correlate to surgical history and endoscopic findings. Redemonstration of a solid right adrenal nodule which is not significantly changed. Interval enlargement of right renal hypodensity which potentially represents a cyst, ultrasound could be performed to see if this can be characterized as a simple cyst. Definitive characterization is possible by multiphase CT renal mass protocol. RADIA
--- NOTE | 2020-01-19 11:44 | CT Report ---
Reason: MALIGNANT NEOPLASM Procedure Date: 01/18/2020 Accession Number: [id number] / [id number] Procedure: CT - CHEST W CPT Code: Final Report FULL RESULT: EXAM: CT CHEST EXAM DATE: 01/18/2020 10:50 AM. CLINICAL HISTORY: Malignant neoplasm. COMPARISONS: CHEST W/ 11/17/2018 12:59 PM. TECHNIQUE: Routine helical CT imaging was performed through the chest. IV contrast: 100 mL Optiray 320. Reconstructions: Coronal and sagittal. In accordance with CT protocol optimization, one or more of the following dose reduction techniques were utilized for this exam: automated exposure control, adjustment of mA and/or KV based on patient size, or use of iterative reconstructive technique. FINDINGS: Lungs/Pleura: There is a new right middle lobe irregular appearing solid nodule measuring up to 6 mm on image 185 series 3 The following previously catalogued nodules have not significantly changed. The previously seen left upper lobe 3 mm nodule is stable image 79 series 3. Previously seen perifissural left lower lobe nodules remain stable on image 132 series 3, up to 2 mm each. The irregular appearing 6 mm right upper lobe nodule is essentially unchanged on image 106 series 3. A 3 mm nodule in the right upper lobe anteriorly is stable on image 119 series 3. Additional nodules measuring 3 mm or less are also essentially unchanged. There is left lower lobe bronchiectasis as well as subsegmental atelectasis and groundglass opacity which appears similar to the previous study, the same chronic process is seen at the right lung base posteriorly to a lesser degree. Mediastinum: Compared to the previous exam, hilar lymph nodes have increased in prominence and now measure up to 0.9 cm in short axis as seen on image 151 series 3, not meeting size criteria. Similarly, mediastinal lymph nodes do not meet size criteria. There is no pericardial effusion. Bones: No aggressive osseous lesions are detected. Visualized Abdomen: Please refer to the separate imaging interpretation of the CT abdomen and pelvis, images obtained at the same time. Other: None. IMPRESSION: Interval development of a 6 mm right middle lobe nodule. Numerous additional pulmonary nodules most of which measure 3 mm or less as well as a stable 6 mm nodule are again noted. This is seen in the setting of chronic changes at the lung bases with scarring and bronchiectasis. RADIA
== END 2020-01-18 09:11 | disposition home or self-care (01) ==
LOC: DI 09:10
PROVIDERS: ATTEND Internal Medicine Hematology & Oncology
DX: C17.0 Malignant neoplasm of duodenum (principal); R91.8 Other nonspecific abnormal finding of lung field; J47.9 Bronchiectasis, uncomplicated; N20.0 Calculus of kidney; E27.8 Other specified disorders of adrenal gland; N28.9 Disorder of kidney and ureter, unspecified; Z90.49 Acquired absence of other specified parts of digestive tract; Z98.890 Other specified postprocedural states
CPT/HCPCS: 71260; 74177

== ENCOUNTER 2020-04-18 10:35 | Outpatient (CLI) | payer MEDICARE ==
[2020-04-18] MEDS ORDERED: IOVERSOL 320 100 ML VIAL IVP ONE ×2 (10:49→11:23)
--- NOTE | 2020-04-19 11:42 | CT Report ---
PROCEDURE: CHEST W INDICATIONS: Malignant neoplasm of duodenum. CONTRAST: IV CONTRAST: Optiray 320 ml: 100 PO CONTRAST: *NO PO CONTRAST TECHNIQUE: After the administration of intravenous contrast, 5 mm thick sections acquired from the pulmonary api kira to the posterior costophrenic angles. 7 mm thick coronal MIP reformats were acquired. For radia tion dose reduction, the following was used: automated exposure control, adjustment of mA and/or kV according to patient size. COMPARISON: CT chest 01/10/2020, 11/17/2018. CT abdomen pelvis 07/02/2017. FINDINGS: Image quality: Excellent. Lungs and pleura: There is progressive increase in size of a right middle lobe nodule, now measuring up to 9 mm on series 4 image 180 compared to 6 mm on the prior study. There are mildly spiculated mar gins. In the left upper lobe, there is a small pulmonary nodule measuring 3 to 4 mm on image 64 which appears slightly increased in size from the prior study and new from the 2019 exam. Additional small er scattered pulmonary nodules are also redemonstrated and appear similar to the prior studies. These include a 6 mm irregular right upper lobe nodule on image 98, 3 mm left upper lobe nodule on image 7 7, 3 mm left upper lobe nodule on image 100, and small 2 mm perifissural nodules in the left lower lo be on image 130. There is linear scarring and atelectasis in the lung bases. No pleural effusions or pneumothorax. Central and peripheral airways are patent and normal in caliber. Mediastinum: Heart size is normal. No pericardial effusion. There is coronary arterial vascular maldonado cification. No mediastinal or hilar adenopathy by size criteria. Thoracic aorta and central pulmonar y arteries are normal in size. Esophagus is normal in caliber. There is a small hiatal hernia. Bones and chest wall: No suspicious bony lesions. No vertebral body compression fractures. No axil aman or supraclavicular adenopathy by size criteria. Thyroid gland . Abdomen: Visualized upper abdomen redemonstrates a right adrenal nodule measuring up to 2.9 x 1.9 cm . This demonstrates indeterminate attenuation values but appears stable in size compared to the prior studies. IMPRESSION: 1. Progressive increase in size of a right middle lobe nodule as well as slight increase in size of a left upper lobe nodule. The findings suggest progression of metastatic disease. 2. Multiple additional smaller bilateral nodules appear stable compared to the prior studies. 3. Stable right adrenal nodule. Reviewed by: Dilip Mireles MD on 04/19/2020 11:40 AM PDT Approved by: Dilip Mireles MD on 04/19/2020 11:40 AM PDT Station ID: [id number]
== END 2020-04-18 10:36 | disposition home or self-care (01) ==
LOC: DI 10:35
PROVIDERS: ATTEND Internal Medicine Hematology & Oncology
DX: C17.0 Malignant neoplasm of duodenum (principal); R91.8 Other nonspecific abnormal finding of lung field
CPT/HCPCS: 71260; Q9967

== ENCOUNTER 2020-08-09 12:17 | Outpatient (CLI) | payer MEDICARE ==
--- NOTE | 2020-08-09 13:11 | XRAY Report ---
PROCEDURE: Knee 3 View LT INDICATIONS: L KNEE PAIN,GLF TECHNIQUE: 3 views of the left knee(s) were acquired. COMPARISON: None. FINDINGS: Bones: No fractures or dislocations. No suspicious bony lesions. Mild medial and patellofemoral co mpartment narrowing is present. Soft tissues: Mild to moderate joint effusion. No suspicious soft tissue calcifications. IMPRESSION: Mild medial and patellofemoral compartment narrowing suggestive of osteoarthritis. No vi sualized acute fracture or dislocation. However, occult injury cannot be excluded. Recommend short in terval imaging follow-up in 7-10 days as clinically indicated for additional evaluation. Reviewed by: Suzan Fuller MD on 08/09/2020 1:10 PM [facility] Approved by: Suzan Fuller MD on 08/09/2020 1:10 PM [facility] Station ID: [id number]
== END 2020-08-09 12:18 | disposition home or self-care (01) ==
LOC: DI 12:17
PROVIDERS: ATTEND Physician Assistant Medical
DX: M17.12 Unilateral primary osteoarthritis, left knee (principal)

== ENCOUNTER 2020-08-22 09:30 | Outpatient (CLI) | payer MEDICARE ==
[2020-08-22] MEDS ORDERED: IOVERSOL 320 100 ML VIAL IVP ONE ×2 (10:35→13:21)
--- NOTE | 2020-08-22 16:55 | CT Report ---
PROCEDURE: CHEST W INDICATIONS: MALIGNANT NEOPLASM OF DUODENUM CONTRAST: IV CONTRAST: Optiray 320 ml: 100 PO CONTRAST: *NO PO CONTRAST TECHNIQUE: After the administration of intravenous contrast, 5 mm thick sections acquired from the pulmonary api kira to the posterior costophrenic angles. 7 mm thick coronal MIP reformats were acquired. For radia tion dose reduction, the following was used: automated exposure control, adjustment of mA and/or kV according to patient size. COMPARISON: Comparison chest CT 04/18/2020 and 01/18/2020. FINDINGS: Image quality: Excellent. Lungs and pleura: The current findings raise a high degree of concern that multifocal pulmonary meta static nodules are both developing and increasing in size. There are scattered small nodules that are less than 3 mm in diameter, and a number of these are new. There are 3 foci of focal lung masses wit hin the apex of the left upper lobe seen on CT series 4 image 50, the round lesion in that level kassandra uring up to 3 mm in diameter and a linear lesion more anteriorly also 3 mm in that a 2 mm nodule more anteriorly. More inferiorly and posteriorly a previously present 3 mm nodule now measures up to 4 mm , image 68. A new nodule is seen more inferiorly the right middle lobe lateral nodule seen on image 1 76 has further enlarged in size and shows slight increased spiculation, now measuring up to 9 mm in d iameter. A right lower lobe nodule more inferiorly measures up to 1.2 cm and is seen on image 183. Ch ronic bronchitis is noted in this general region at each lung base, which obscures visualization of p ortions of the lung bases for detection of small nodules.. No pleural effusions or pneumothorax. Central and peripheral airways are patent and normal in calibe r. Mediastinum: Heart size is normal. No pericardial effusion. No mediastinal or hilar adenopathy by size criteria. Thoracic aorta and central pulmonary arteries are normal in size. Esophagus is jf l in caliber. No hiatal hernia. Bones and chest wall: No suspicious bony lesions. No vertebral body compression fractures. No axil aman or supraclavicular adenopathy by size criteria. Thyroid gland appears normal where well seen. Abdomen: Visualized upper abdominal solid organs appear normal except for a malignant-appearing mass at the right adrenal gland, measuring up to 3 cm in maximal dimension and solid in appearance with p resumed metastatic etiology.. Upper abdominal bowel loops are normal in caliber. IMPRESSION: Worsening pulmonary metastatic disease, comprised of both enlarging lung masses and development of ne w rounded lung masses.. Slight interval enlargement of a right adrenal mass measuring now 3.0 x 2.1 c m. Reviewed by: Db Tejeda MD on 08/22/2020 4:54 PM PST Approved by: Db Tejeda MD on 08/22/2020 4:54 PM PST Station ID: [id number]
== END 2020-08-22 09:31 | disposition home or self-care (01) ==
LOC: DI 09:30
PROVIDERS: ATTEND Internal Medicine Hematology & Oncology
DX: C78.02 Secondary malignant neoplasm of left lung (principal); C78.01 Secondary malignant neoplasm of right lung; C79.71 Secondary malignant neoplasm of right adrenal gland
CPT/HCPCS: 71260

== ENCOUNTER 2020-09-25 16:12 | Outpatient (CLI) | payer MEDICARE | END 2020-09-25 16:13 | disposition home or self-care (01) | LOC: LAB 16:12 | PROVIDERS: ATTEND Internal Medicine Hematology & Oncology | DX: C17.0 Malignant neoplasm of duodenum (principal); Z20.828 Contact with and (suspected) exposure to other viral communicable diseases ==

== ENCOUNTER 2021-06-07 13:56 | Emergency (ER) | payer MEDICARE ==
--- NOTE | 2021-06-07 15:03 | ED Physician Documentation ---
History of Present Illness - Stated complaint Stated Complaint: NECK PX - Chief complaint Chief Complaint: General - History obtained from History obtained from: Family - Additonal information Additional information: This is an 85-year-old man who presents with his after having had a CT scan today that showed DVT in the left subclavian vein. Patient has known metastatic duodenal cancer. He is elected no chemotherapy and has been very clear with his that quality is better than quantity of life. His 's been given power of [place] attorney. After the CT scan they were called by the triage nurse at the oncologist office that told him to go to the emergency department due to critical findings. He has been a little dizzy and had some headaches but is not been short of breath. He has had some pink sputum occasionally. 2 weeks ago he started taking aspirin. Review of Systems Constitutional: denies: Fever Respiratory: reports: Cough (Occasional pink) GI: denies: Nausea, Vomiting Neurologic: reports: Confused, Headache PD PAST MEDICAL HISTORY - Past Medical History Cardiovascular: Hypertension, [place] Respiratory: None Endocrine/Autoimmune: None GI: Other : Benign prostate hypertrophy HEENT: Chronic hearing loss Psych: Anxiety Musculoskeletal: Osteoarthritis Derm: Psoriasis - Past Surgical History Past Surgical History: Yes General: Bowel surgery Ortho: Carpal Tunnel surgery Cardiovascular: Cardiac catheterization HEENT: Cataracts, Tonsil/Adenoidectomy - Present Medications Home Medications: Ambulatory Orders Medication Instructions Recorded Confirmed Multivitamin [Theragran] 1 tab PO DAILY 11/23/17 11/22/20 Witch Kanika/Glycerin [Tucks] 1 each TOP BID #30 med..pad 11/23/17 11/22/20 Apixaban [Eliquis] 2.5 mg PO BID #60 tablet 06/07/21 - Allergies Allergies/Adverse Reactions: Allergies Allergy/AdvReac Type Severity Reaction Status Date / Time ceftriaxone sodium * Allergy Dizziness Verified 06/07/21 14:15 [From Rocephin] morphine Allergy swelling Verified 06/07/21 14:15 - Social History Does the pt smoke?: No Smoking Status: Current some day smoker Does the pt drink ETOH?: No Does the pt have substance abuse?: No - Immunizations Immunizations are current?: Yes - POLST Patient has POLST: Yes POLST Status: Full Code PD ED PE NORMAL - Vitals Vital signs reviewed: Yes - General General: No acute distress, Well developed/nourished, Other (He is oriented to his name but unsure of the place or date.) - HEENT HEENT: Atraumatic, PERRL, Moist mucous membranes - Neck Neck: No adenopathy - Cardiac Cardiac: RRR, No murmur - Respiratory Respiratory: No respiratory distress, Clear bilaterally - Abdomen Abdomen: Normal bowel sounds, Soft, Non tender - Derm Derm: Normal color, Warm and dry, No rash - Extremities Extremities: No edema - Neuro Neuro: No motor deficit, No sensory deficit, Normal speech - Psych Psych: Normal mood Results - Vitals Vitals: Vital Signs - 24 hr 06/07/21 06/07/21 14:11 14:15 Temperature 36.4 C L 36.5 C Heart Rate 87 87 Respiratory 16 16 Rate Blood Pressure 160/71 H 160/70 H O2 Saturation 97 97 Oxygen O2 Source Room air PD MEDICAL DECISION MAKING - ED course Complexity details: d/w patient, d/w family ED course: Had a copy of the CT report that was done today at [facility] there is extensive metastatic disease and there is a DVT in the left subclavian vein. I spoke with Dr Rodríguez,Who is on-call for Dr Lynn, His oncologist. Working to start him on Eliquis 2.5 mg twice daily and they will follow up. I have also offered hospice care information to the since they are clear that he does not want chemotherapy or extensive life prolonging services. They believe that quality is better than quantity. Departure - Departure Disposition: 01 Home, Self Care Clinical Impression: DVT (deep venous thrombosis) Instructions: DVT Tx Follow-Up: Derrick Garza MD [Primary Care Provider] - MICHELLE LYNN MD [Physician No Access] - Prescriptions: Apixaban [Eliquis] 2.5 mg PO BID #60 tablet Comments: Begin the Eliquis for blood thinning twice a day tonight. Stop taking the aspirin as it will also thin your blood. Watch your sputum closely for any signs of bright red blood. Consider contacting [facility] [phone]. Follow-up with your primary care provider and Dr. Lynn.
[2021-06-07 16:55] VITALS: BP 150/65
--- NOTE | 2021-06-07 18:03 | ED Physician Documentation ---
ED Addendum - Addendum Addendum: 06/07/21 17:57 returns stating that the Eliquis was not covered by their insurance so I am going to switch to Xarelto. 06/07/21 18:08 After some research it is apparent that Xarelto will not be covered either. I have given him a prescription for the 5 mg Eliquis that they can cut in half and use twice daily. That will at least bring the cost down. That prescription was transmitted. Departure - Departure Disposition: 01 Home, Self Care Clinical Impression: DVT (deep venous thrombosis) Instructions: DVT Tx Follow-Up: Derrick Garza MD [Primary Care Provider] - MICHELLE YUEN MD [Physician No Access] - Prescriptions: Apixaban [Eliquis] 2.5 mg PO BID 30 Days #15 tablet Comments: Begin the Eliquis for blood thinning twice a day tonight. Stop taking the aspirin as it will also thin your blood. Watch your sputum closely for any signs of bright red blood. Consider contacting [phone]. Follow-up with your primary care provider and Dr. Yuen. Discharge Date/Time: 06/07/21 16:56
== END 2021-06-07 16:56 | disposition home or self-care (01) ==
LOC: ED 13:56
DX: I82.622 Acute embolism and thrombosis of deep veins of left upper extremity (principal); C17.0 Malignant neoplasm of duodenum; C79.9 Secondary malignant neoplasm of unspecified site; F17.200 Nicotine dependence, unspecified, uncomplicated
CPT/HCPCS: 99282; 99284

== ENCOUNTER 2021-07-02 19:38 | Emergency (ER) | payer MEDICARE ==
--- NOTE | 2021-07-02 20:06 | ED Physician Documentation ---
PD HPI CHEST PAIN - Stated complaint Stated Complaint: HIGH BLOOD PRESSURE - Chief complaint Chief Complaint: Resp - History obtained from History obtained from: Patient, Family () - Additional information Additional information: 85-year-old gentleman with metastatic duodenal cancer, dementia, coronary disease, COPD. Known metastases to the lungs. Recent diagnosis of left subclavian thrombus, now on warfarin as NOACs were too expensive. Went to the walk-in clinic today for evaluation of supraclavicular swelling on the left and was sent here for concern for subcutaneous emphysema. Patient states it is not painful. Review of Systems Ten Systems: 10 systems reviewed and negative Constitutional: denies: Fever, Chills Eyes: reports: Reviewed and negative Ears: reports: Reviewed and negative Nose: reports: Reviewed and negative PD PAST MEDICAL HISTORY - Past Medical History Past Medical History: Yes Cardiovascular: Hypertension, [place] Respiratory: None Neuro: Dementia Endocrine/Autoimmune: None GI: Other : Benign prostate hypertrophy HEENT: Chronic hearing loss Psych: Anxiety Musculoskeletal: Osteoarthritis Derm: Psoriasis - Past Surgical History Past Surgical History: Yes General: Bowel surgery Ortho: Carpal Tunnel surgery Cardiovascular: Cardiac catheterization HEENT: Cataracts, Tonsil/Adenoidectomy - Present Medications Home Medications: Ambulatory Orders Medication Instructions Recorded Confirmed Donepezil [Aricept] 10 mg PO DAILY 07/02/21 07/02/21 Warfarin [Coumadin] 5 mg PO DAILY 07/02/21 07/02/21 - Allergies Allergies/Adverse Reactions: Allergies Allergy/AdvReac Type Severity Reaction Status Date / Time ceftriaxone sodium * Allergy Dizziness Verified 07/02/21 19:44 [From Rocephin] morphine Allergy swelling Verified 07/02/21 19:44 - Social History Does the pt smoke?: No Smoking Status: Never smoker Does the pt drink ETOH?: No Does the pt have substance abuse?: No - Immunizations Immunizations are current?: Yes - POLST Patient has POLST: Yes POLST Status: Full Code PD ED PE NORMAL - Vitals Vital signs reviewed: Yes - General General: No acute distress, Well developed/nourished - HEENT HEENT: PERRL, EOMI - Neck Neck: Supple, no meningeal sign, No bony TTP - Cardiac Cardiac: RRR, No murmur - Respiratory Respiratory: No respiratory distress, Clear bilaterally, Other (Supraclavicular swelling on the left more consistent with lymphadenopathy to me than subcutaneous emphysema. He does have engorgement of the veins on the left anterior chest wall. 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 Eye Opening: Spontaneous Motor: Obeys Commands Verbal: Confused GCS Score: 14 Results - Vitals Vitals: Vital Signs - 24 hr 07/02/21 07/02/21 07/02/21 19:44 19:48 22:25 Temperature 36.5 C 36.5 C 36.6 C Heart Rate 79 79 72 Respiratory 22 22 21 Rate Blood Pressure 173/82 H 173/82 H 155/82 H O2 Saturation 96 96 96 Oxygen O2 Source Room air - Labs Labs: Laboratory Tests 07/02/21 07/02/21 07/02/21 20:07 20:07 20:07 WBC 6.5 RBC 4.59 L Hgb 14.0 Hct 43.2 MCV 94.1 H MCH 30.5 MCHC 32.4 RDW 13.0 Plt Count 353 MPV 8.9 Neut # (Auto) 4.6 Lymph # (Auto) 0.9 L [place] # (Auto) 0.9 Eos # (Auto) 0.2 Baso # (Auto) 0.0 Absolute Nucleated RBC 0.00 Nucleated RBC % 0.0 PT 46.9 H INR 4.2 H Sodium 138 Potassium 4.5 Chloride 98 L Carbon Dioxide 28 Anion Gap 12.0 BUN 17 Creatinine 0.9 Estimated GFR (MDRD) 80 L Glucose 108 H Calcium 9.5 - Rads (name of study) CT chest Radiology: EMP read contemporaneously PD MEDICAL DECISION MAKING - ED course ED course: 85-year-old gentleman who has eschewed chemotherapy for metastatic cancer presents with left supraclavicular swelling in the setting of a known DVT there. He was sent from clinic to rule out subcutaneous emphysema and this is absent. His goals of care are conservative and they do not want inpatient treatment or chemotherapy. Departure - Departure Disposition: 01 Home, Self Care Clinical Impression: DVT (deep venous thrombosis), Metastatic cancer Condition: Good Record reviewed to determine appropriate education?: Yes Comments: CAT scan today shows worsening of pulmonary metastatic disease and persistence clot in the veins on the left side. This is probably what is causing the swelling you are noticing in that area. There is no air there. Return for new or worsening symptoms, otherwise to continue current plan of care given your goals of care. NOTE TO HIM Please copy chart from today to Dr. Lore Lynn at [facility], fax number [phone] Discharge Date/Time: 07/02/21 22:25
[2021-07-02 20:14] LABS: BASOPHILS % (AUTO) 0.5 %; EOSINOPHILS # (AUTO) 0.2 10^3/uL (0.0-0.7); EOSINOPHILS % (AUTO) 3.1 %; HCT - HEMATOCRIT 43.2 % (42.0-52.0); LYMPHOCYTES # (AUTO) 0.9 10^3/uL (1.5-3.5); LYMPHOCYTES % (AUTO) 13.6 %; MEAN CORPUSCULAR HEMOGLOBIN 30.5 pg (27.0-31.0); MEAN CORPUSCULAR HGB CONC 32.4 g/dL (32.0-36.0); MEAN CORPUSCULAR VOLUME 94.1 fL (80.0-94.0); MEAN PLATELET VOLUME 8.9 fL (7.4-11.4); MONOCYTES # (AUTO) 0.9 10^3/uL (0.0-1.0); NEUTROPHILS # (AUTO) 4.6 10^3/uL (1.5-6.6); NEUTROPHILS % (AUTO) 69.6 %; PLT - PLATELET COUNT 353 10^3/uL (130-450); RED BLOOD COUNT 4.59 10^6/uL (4.70-6.10); WHITE BLOOD COUNT 6.5 x10^3/uL (4.8-10.8)
[2021-07-02 20:20] LABS: INR 4.2 (0.8-1.2); PT - PROTHROMBIN TIME 46.9 secs (9.9-12.6)
[2021-07-02 20:31] LABS: CALCIUM 9.5 mg/dL (8.5-10.3); CREATININE 0.9 mg/dL (0.6-1.2); POTASSIUM 4.5 mmol/L (3.5-5.0)
[2021-07-02] MEDS ORDERED: IOVERSOL 320 100 ML VIAL IVP ONE ×2 (20:57→21:19)
--- NOTE | 2021-07-02 22:11 | CT Report ---
PROCEDURE: CHEST W INDICATIONS: R supraclavicular mass TECHNIQUE: Noncontrast 1mm axial images were acquired from the pulmonary apices to the posterior costophrenic an gles. Axial 5 mm soft tissue kernel reconstructions were performed as well as 8 mm axial MIP and cor onal and sagittal 5 mm reformations. For radiation dose reduction, the following was used: automate d exposure control, adjustment of mA and/or kV according to patient size. COMPARISON: 08/22/2020 FINDINGS: Image quality: Excellent. Lungs and pleura: Multiple pulmonary masses are seen measuring up to 2.6 cm in the right lower lobe. Masses are present throughout both lungs, the largest in the left lung in the lingula measuring 1.8 cm. There is bibasilar atelectasis. No pneumothorax or pleural effusion. No acute air space opacities . No pleural effusions or pneumothorax. Central and peripheral airways are patent and normal in maldonado iber. Mediastinum: Heart size is normal. No pericardial effusion. Bilateral hilar adenopathy and mediasti nal adenopathy is seen with a left AP window lymph node measuring 1.5 cm and right hilar lymph nodes measuring up to 2 cm. Thoracic aorta and central pulmonary arteries are normal in size. Vasculature demonstrates atherosclerotic calcifications. There is thrombus of the left brachiocephalic vein, visu alized left jugular vein, and left subclavian vein. Esophagus is normal in caliber. No hiatal hernia . Bones and chest wall: No suspicious bony lesions. No vertebral body compression fractures. No axil aman or supraclavicular adenopathy by size criteria. The thyroid is normal in size. Abdomen: Visualized upper abdominal solid organs and bowel loops appear normal in the absence of con trast. IMPRESSION: 1. Worsening bilateral pulmonary metastatic disease with pulmonary masses measuring up to 2.6 cm on t he right and 1.8 cm on the left. 2. Thrombus within the left brachiocephalic vein, visualized left jugular vein, and left subclavian v ein. 3. Right adrenal mass measuring 3.0 x 2.1 cm. 4. Hilar and mediastinal adenopathy. Reviewed by: Ganesh Beyer on 07/02/2021 10:09 PM PDT Approved by: Ganesh Beyer on 07/02/2021 10:09 PM PDT Station ID: [id number]
[2021-07-02 22:26] VITALS: BP 155/82
== END 2021-07-02 22:25 | disposition home or self-care (01) ==
LOC: ED 19:38
DX: I82.290 Acute embolism and thrombosis of other thoracic veins (principal); C78.02 Secondary malignant neoplasm of left lung; C78.01 Secondary malignant neoplasm of right lung; Z85.068 Personal history of other malignant neoplasm of small intestine; I10 Essential (primary) hypertension; I25.10 Atherosclerotic heart disease of native coronary artery without angina pectoris; J44.9 Chronic obstructive pulmonary disease, unspecified; F03.90 Unspecified dementia, unspecified severity, without behavioral disturbance, psychotic disturbance, mood disturbance, and anxiety; Z86.718 Personal history of other venous thrombosis and embolism; Z79.01 Long term (current) use of anticoagulants
CPT/HCPCS: 36415; 71260; 80048; 85025; 85610; 99283; 99284; Q9967

== ENCOUNTER 2021-08-04 13:50 | Emergency (ER) | payer MEDICARE ==
[2021-08-04 14:25] VITALS: BP 117/75
--- NOTE | 2021-08-04 14:33 | ED Physician Documentation ---
History of Present Illness - Stated complaint Stated Complaint: SOA - Chief complaint Chief Complaint: Resp - Additonal information Additional information: 85-year-old male who has a history most notable for dementia, coronary artery disease, hyperlipidemia, COPD presents to the emergency department for evaluation of an acute episode of coughing and difficulty breathing. 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 In fact he was seen in this ER just over [address] scan showed worsening of the pulmonary metastatic disease. He is also noted to have a clot in the veins on the left side of his lungs for which he is taking Coumadin. This patient is followed by Dr. Juan Lynn with hematology and oncology. The patient and his had made very clear that given the advancement of the cancer they do not want to proceed with any active chemotherapy. They were referred to palliative care because at the time of the last oncology visit they were not ready for hospice however the reports to me that over the last week he has lost more weight and is having increasing dyspnea. She feels that they are now ready for hospice. We discussed at the bedside that the most likely cause for sudden onset difficulty breathing and a choking episode was further advancement of his cancer. I did offer evaluation in the emergency department with laboratory testing as we ll as likely CT of the chest and neck to further define how advanced the cancer has become but his reported that she did not feel this was necessary. She is in contact with hospice and will call them on Friday in order to establish the care formally. The patient appears rather well. He is in no respiratory distress and saturating 99% on room air. He is tolerating his oral secretions. Review of Systems Unable to obtain: Dementia, Other (/chart) Ears: reports: Reviewed and negative Nose: reports: Reviewed and negative Throat: reports: Other (Choking episode) Cardiac: reports: Chest pain / pressure Respiratory: reports: Dyspnea, Cough GI: reports: Reviewed and negative : reports: Reviewed and negative PD PAST MEDICAL HISTORY - Past Medical History Cardiovascular: Hypertension, IN Respiratory: None Neuro: Dementia Endocrine/Autoimmune: None GI: Other : Benign prostate hypertrophy HEENT: Chronic hearing loss Psych: Anxiety Musculoskeletal: Osteoarthritis Derm: Psoriasis - Past Surgical History Past Surgical History: Yes General: Bowel surgery Ortho: Carpal Tunnel surgery Cardiovascular: Cardiac catheterization HEENT: Cataracts, Tonsil/Adenoidectomy - Present Medications Home Medications: Ambulatory Orders Medication Instructions Recorded Confirmed Donepezil [Aricept] 10 mg PO DAILY 07/02/21 07/02/21 Warfarin [Coumadin] 5 mg PO DAILY 07/02/21 07/02/21 - Allergies Allergies/Adverse Reactions: Allergies Allergy/AdvReac Type Severity Reaction Status Date / Time ceftriaxone sodium * Allergy Dizziness Verified 08/04/21 14:04 [From Rocephin] morphine Allergy swelling Verified 08/04/21 14:04 - Social History Does the pt smoke?: No Smoking Status: Never smoker Does the pt drink ETOH?: No Does the pt have substance abuse?: No - Immunizations Immunizations are current?: Yes - POLST Patient has POLST: Yes POLST Status: Full Code PD ED PE NORMAL - General General: Alert and oriented X 3, No acute distress. No: Well develope d/nourished (thin cachetic appearance) - HEENT HEENT: Moist mucous membranes - Neck Neck: Supple, no meningeal sign - Cardiac Cardiac: RRR, No murmur - Respiratory Respiratory: No respiratory distress, Clear bilaterally - Abdomen Abdomen: Normal bowel sounds, Soft. 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 Eye Opening: Spontaneous Motor: Obeys Commands Verbal: Confused GCS Score: 14 Results - Vitals Vitals: Vital Signs - 24 hr 08/04/21 14:00 Temperature 36.2 C L Heart Rate 86 Respiratory 20 Rate Blood Pressure 117/75 O2 Saturation 99 Oxygen O2 Source Room air PD MEDICAL DECISION MAKING - ED course Complexity details: considered differential, d/w patient, d/w family ED course: 85-year-old male who has a history of dementia coronary artery disease hyperlipidemia as well as advanced adenocarcinoma with metastatic disease to the lungs presents to the emergency department with a chop coughing and choking episode that occurred spontaneously while driving. In review of the hematology and oncology notes the patient and his have been very adamant that they do not wish to proceed with any chemotherapy. They were referred to palliative care however they feel at this time hospice may be more indicated. The is in contact with the hospice team locally here at [facility]. We did discuss the option of advanced testing here in the emergency department to evaluate whether the coughing and choking episode was related to the advancement of the cancer but they have declined that at this time which given his history seems appropriate. Patient is will be discharged home. She is to contact the hospice department on Friday. He does have cough suppressants as well as analgesia at home. 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 As you have discussed with the oncologist you guchace do not want to pursue chemotherapy which is an appropriate decision. The cause of his coughing and choking episode is not 100% clear but it is likely due to advancing of his cancer. We discussed the possibility of pursuing labs and CT imaging here in the emergency department but given that it would not change your treatment you have declined to do this. Please continue to follow-up with the hospice team on Friday. It is appropriate to continue to give him the Tessalon Perles for cough and the hydrocodone at home for pain.
== END 2021-08-04 14:51 | disposition home or self-care (01) ==
LOC: ED 13:50
DX: R09.89 Other specified symptoms and signs involving the circulatory and respiratory systems (principal); C78.00 Secondary malignant neoplasm of unspecified lung; C17.0 Malignant neoplasm of duodenum; F03.90 Unspecified dementia, unspecified severity, without behavioral disturbance, psychotic disturbance, mood disturbance, and anxiety; J44.9 Chronic obstructive pulmonary disease, unspecified; I26.99 Other pulmonary embolism without acute cor pulmonale; I25.10 Atherosclerotic heart disease of native coronary artery without angina pectoris; E78.5 Hyperlipidemia, unspecified; I10 Essential (primary) hypertension; H91.90 Unspecified hearing loss, unspecified ear; Z51.5 Encounter for palliative care; Z79.01 Long term (current) use of anticoagulants; Z79.899 Other long term (current) drug therapy; I25.2 Old myocardial infarction
CPT/HCPCS: 99281; 99283